=== PATIENT | male | born 1990 | race Caucasian/White ===

== ENCOUNTER 2016-02-24 19:36 | Observation (INO) | payer MEDICAID ==
[2016-02-24] MEDS ORDERED: NS 1,000 ML IV ONE ×2 (19:45→21:52)
[2016-02-24] MEDS ORDERED: ONDANSETRON 4 MG/2 ML VIAL IVP ONE (19:45)
[2016-02-24] MEDS ORDERED: LORazepam 2 MG/ML INJ IVP ONE ×2 (19:45→20:47)
--- NOTE | 2016-02-24 19:45 | EDPHY ---
H & P Time Seen by Provider: 02/24/16 19:37 HPI/ROS: CHIEF COMPLAINT: Epigastric abdominal pain HISTORY OF PRESENT ILLNESS: 25-year-old male history of alcoholism, has been binge drinking, arrives via ambulance from [facility] complaining of acute epigastric abdominal pain, states this feels similar to his usual pancreatitis. He has a history of chronic pancreatitis my pancreas is burned out. States that his lipase is chronically normal. He is complaining of nausea, vomiting, retching, epigastric abdominal pain REVIEW OF SYSTEMS: A ten point review of systems was performed and is negative with the exception of the items mentioned in the HPI PAST MEDICAL & SURGICAL HISTORY: Chronic pancreatitis. Alcoholism SOCIAL HISTORY:recent binge drinking PHYSICAL EXAM (Prior to examination, patient consented to physical exam, hands were washed and my usual and customary physical exam procedures followed) 1) GENERAL: Well-developed, well-nourished, alert and oriented. Appears Uncomfortable. 2) HEAD: Normocephalic, atraumatic 3) HEENT: Pupils equal, round, reactive to light bilaterally. Sclera anicteric. Nasopharynx, oropharynx, clear, no lesions. Moist mucous membranes 4) NECK: Full range of motion, no meningeal signs. 5) LUNGS: Clear auscultation bilaterally, no wheezes, no rhonchi, no retractions. 6) HEART: Regular rate and rhythm, no murmur, no heave, no gallop. 7) ABDOMEN: guarding epigastrium, tender to palpation epigastrium n negative Willett's, negative Rovsing's, negative peritoneal sign, 8) MUSCULOSKELETAL: Moving all extremities, no focal areas of tenderness, no obvious trauma. No peripheral edema or discoloration. 9) BACK: No CVA tenderness, no midline vertebral tenderness, no fluctuance, no step-off, no obvious trauma, no visual or palpable abnormality. 10) SKIN: No rash, no petechiae. 11) Psychiatric: Patient is oriented X 3, there is no agitation. DIFFERENTIAL DIAGNOSIS: in no particular include but limited to acute cholecystitis, acute pancreatitis, peptic ulcer disease - Personal History Tetanus Vaccine Date: 2015 - Medical/Surgical History Hx Asthma: No Hx Chronic Respiratory Disease: No Hx Diabetes: No Hx Cardiac Disease: No Hx Renal Disease: No Hx Cirrhosis: No Hx Alcoholism: No Hx HIV/AIDS: No Hx Splenectomy or Spleen Trauma: No Other PMH: chronic pancreatitis. uncontrolled htn. anxiety. Alcohol abuse - Social History Smoking Status: Current every day smoker Constitutional: Initial Vital Signs Temperature (C) 37.2 C 02/24/16 19:41 Heart Rate 103 H 02/24/16 19:41 Respiratory Rate 16 02/24/16 19:41 Blood Pressure 145/95 H 02/24/16 19:41 O2 Sat (%) 97 02/24/16 19:41 O2 Delivery Mode Room Air O2 (L/minute) 2 Allergies/Adverse Reactions: tramadol Allergy (Verified 01/16/16 15:23) Home Medications: Medication Instructions Recorded Antabuse 250 MG (*) 12/09/15 LORazepam [Ativan] 1 mg PO Q8 PRN #3 tab 12/09/15 Ondansetron Odt [Zofran Odt 4 mg 4 mg PO Q4 PRN #10 tab 12/09/15 (RX)] Famotidine [Pepcid 20 MG (*)] 20 mg PO BID #28 tab 01/06/16 Medical Decision Making - Diagnostics Imaging: CT Scan of the Abdomen and Pelvis (With Contrast) Clinical Indications: Abdominal pain. Technique: Dilute contrast was given orally prior to scanning. 90 mL of Isovue-300 were given intravenously by machine power injection. Multidetector helical CT imaging was performed from the diaphragm to the symphysis pubis. Dose reduction techniques were utilized. Findings Abdomen: The lung bases are clear, and there is no significant pleural fluid. The liver is diffusely fatty infiltrated. The biliary ducts and gallbladder are unremarkable. The pancreas and spleen are normal. The adrenal glands and kidneys are normal. No adenopathy and no masses are found. No aneurysm of the abdominal aorta. Pelvis: The urinary bladder is unremarkable. No free fluid in the pelvis. No masses are identified. Bowel loops are normal. Impression: Fatty infiltration of the liver. Images reviewed by myself ED Course/Re-evaluation: 8:40 p.m.: Re-evaluation. Discussed his laboratory and diagnostic results. Doubt acute surgical abdominal pathology. Doubt acute pancreatitis. Doubt delirium tremens. He is answering questions appropriately with no altered mentation. No seizure activity. He has been tolerating oral intake. He would like to be discharged home. He is not on an [facility] hold. I have offered to [facility]. He declines this. States that his girlfriend will be taking him home and putting him to bed. He requests further dose of analgesia and benzodiazepine prior to discharge as he continues to have mild, however significantly improved, epigastric discomfort. We had a lengthy discussion recommended alcohol cessation, discussed the dangers of chronic alcohol use . 10:05 p.m. re-evaluation. Notes that his pain is decreased significantly. Re- evaluated his abdomen which remains diffusely tender to palpation but he does have focal pain in the right lower quadrant. He remains tachycardic in the 130s after multiple dosages of Dilaudid and Ativan. I recommended CT imaging. Indications risks benefits discussed with the patient and he verbalizes consent. 11:28 p.m.: Re-evaluation. He is answering questions appropriately with no evidence of delirium tremens. 12:01 A.M.: This patient was re-evaluated with serial exams. Also seen exam by Dr. Farnsico Ortiz. We discussed possibility of acute alcohol withdrawal as he remains consistently tachycardic. However, he has been given multiple dosages of benzodiazepine as well as IV hydration and analgesic for his abdominal pain he remains tachycardic in the 130s. We do not think that discharging this patient with his current vital signs is appropriate and we recommended admission. Spoke with hospitalist Dr. Arroyo who will admit patient. - Data Points Laboratory Results: Laboratory Results 02/24/16 19:40 02/24/16 19:40 02/24/16 19:40 WBC 9.17 10^3/uL (3.80-9.50) RBC 6.02 10^6/uL (4.40-6.38) Hgb 18.1 H g/dL (13.7-17.5) Hct 51.4 H % (40.0-51.0) MCV 85.4 fL (81.5-99.8) MCH 30.1 pg (27.9-34.1) MCHC 35.2 g/dL (32.4-36.7) RDW 13.0 % (11.5-15.2) Plt Count 334 10^3/uL (150-400) MPV 9.1 fL (8.7-11.7) Neut % (Auto) 69.1 % (39.3-74.2) Lymph % (Auto) 27.4 % (15.0-45.0) [place] % (Auto) 2.2 L % (4.5-13.0) Eos % (Auto) 0.3 L % (0.6-7.6) Baso % (Auto) 0.7 % (0.3-1.7) Nucleat RBC Rel Count 0.0 % (0.0-0.2) Absolute Neuts (auto) 6.34 10^3/uL (1.70-6.50) Absolute Lymphs (auto) 2.51 10^3/uL (1.00-3.00) Absolute Monos (auto) 0.20 L 10^3/uL (0.30-0.80) Absolute Eos (auto) 0.03 10^3/uL (0.03-0.40) Absolute Basos (auto) 0.06 10^3/uL (0.02-0.10) Absolute Nucleated RBC 0.00 10^3/uL (0-0.01) Immature Gran % 0.3 % (0.0-1.1) Immature Gran # 0.03 10^3/uL (0.00-0.10) Sodium 149 H mEq/L (134-144) Potassium 4.3 mEq/L (3.5-5.2) Chloride 105 mEq/L (97-110) Carbon Dioxide 26 mEq/l (22-31) Anion Gap 18 mEq/L (8-16) BUN 14 mg/dL (7-23) Creatinine 1.1 mg/dL (0.7-1.3) Estimated GFR > 60 Glucose 89 mg/dL (70-100) Calcium 9.3 mg/dL (8.5-10.4) Total Bilirubin 0.6 mg/dL (0.1-1.4) Conjugated Bilirubin 0.5 mg/dL (0.0-0.5) Unconjugated Bilirubin 0.1 mg/dL (0.0-1.1) AST 37 IU/L (17-59) ALT 40 IU/L (21-72) Alkaline Phosphatase 117 IU/L (38-126) Total Protein 7.9 g/dL (6.3-8.2) Albumin 5.1 H g/dL (3.5-5.0) Lipase 28.0 IU/L (23-300) Ethyl Alcohol 293 H mg/dL (0-10) Medications Given: Discontinued Medications Folic Acid (Folic Acid) 1 mg PO EDNOW ONE Stop: 02/24/16 20:49 Last Admin: 02/24/16 21:01 Dose: 1 mg Hydromorphone HCl (Dilaudid) 1 mg IVP EDNOW ONE Stop: 02/24/16 19:47 Last Admin: 02/24/16 20:00 Dose: 1 mg Hydromorphone HCl (Dilaudid) 0.5 mg IVP EDNOW ONE Stop: 02/24/16 20:48 Last Admin: 02/24/16 21:03 Dose: 0.5 mg Sodium Chloride (Ns) 1,000 mls @ 0 mls/hr IV ONCE ONE PRN Reason: Wide Open Stop: 02/24/16 19:46 Last Admin: 02/24/16 19:55 Dose: 1,000 mls Sodium Chloride (Ns) 1,000 mls @ 0 mls/hr IV ONCE ONE PRN Reason: Wide Open Stop: 02/24/16 21:53 Last Admin: 02/24/16 22:06 Dose: 1,000 mls Lorazepam (Ativan Injection) 1 mg IVP EDNOW ONE Stop: 02/24/16 19:46 Last Admin: 02/24/16 19:58 Dose: 1 mg Lorazepam (Ativan Injection) 1 mg IVP EDNOW ONE Stop: 02/24/16 20:48 Last Admin: 02/24/16 21:03 Dose: 1 mg Multivitamins (Tab-A-Jose) 1 each PO EDNOW ONE Stop: 02/24/16 20:49 Last Admin: 02/24/16 21:01 Dose: 1 each Ondansetron HCl (Zofran) 4 mg IVP EDNOW ONE Stop: 02/24/16 19:46 Last Admin: 02/24/16 19:56 Dose: 4 mg Thiamine HCl (Vitamin B-1) 100 mg PO EDNOW ONE Stop: 02/24/16 20:49 Last Admin: 02/24/16 21:01 Dose: 100 mg Departure - Departure Disposition: [facility] Clinical Impression: Alcohol abuse, Tachycardia Abdominal pain Qualifiers: Abdominal location: epigastric Qualifier Code: (R10.13) Epigastric pain Alcoholic intoxication Qualifiers: Complication of substance-induced condition: uncomplicated Qualifier Code: ( F10.120) Alcohol abuse with intoxication, uncomplicated Alcohol withdrawal syndrome Qualifiers: Complication of substance-induced condition: with unspecified complication Qualifier Code: (F10.239) Alcohol dependence with withdrawal, unspecified Condition: Fair Additional Instructions: Seek immediate medical attention if you develop new or worsening symptoms, if you develop fevers, chills, inability to tolerate oral intake or any other symptoms that concerns you.Recommend you stay sober from alcohol .
[2016-02-24] MEDS ORDERED: HYDROmorphONE/DILAUDID 1 MG/ML SYR IVP ONE ×2 (19:46→20:47)
[2016-02-24 19:57] LABS: % IMMATURE GRANULYOCYTES 0.3 % (0.0-1.1); ABSOLUTE IMMATURE GRANULOCYTES 0.03 10^3/uL (0.00-0.10); ADD DIFF? NO; ADD MORPH? NO; ADD SCAN? NO; ATYPICAL LYMPHOCYTE FLAG 0 (0-99); FRAGMENT RBC FLAG 0 (0-99); HEMATOCRIT 51.4 % (40.0-51.0); HEMOGLOBIN 18.1 g/dL (13.7-17.5); LEFT SHIFT FLG 0 (0-99); LIPEMIA HEMOLYSIS FLAG 90 (0-99); MEAN CELL HEMOGLOBIN 30.1 pg (27.9-34.1); MEAN CELL HEMOGLOBIN CONCENTR. 35.2 g/dL (32.4-36.7); MEAN CELL VOLUME 85.4 fL (81.5-99.8); MEAN PLATELET VOLUME 9.1 fL (8.7-11.7); PLATELET CLUMPS FLAG 10 (0-99); PLATELET COUNT 334 10^3/uL (150-400); RED BLOOD CELL COUNT 6.02 10^6/uL (4.40-6.38)
[2016-02-24 20:16] LABS: ALANINE AMINOTRANSFERASE 40 IU/L (21-72); ALBUMIN 5.1 g/dL (3.5-5.0); ALKALINE PHOSPHATASE 117 IU/L (38-126); ANION GAP 18 mEq/L (8-16); ASPARTATE AMINOTRANSFERASE 37 IU/L (17-59); BILIRUBIN,TOTAL 0.6 mg/dL (0.1-1.4); BILIRUBIN-CONJUGATED 0.5 mg/dL (0.0-0.5); BILIRUBIN-UNCONJUGATED 0.1 mg/dL (0.0-1.1); CALCIUM 9.3 mg/dL (8.5-10.4); CARBON DIOXIDE 26 mEq/l (22-31); CHLORIDE 105 mEq/L (97-110); CREATININE 1.1 mg/dL (0.7-1.3); ETHANOL SERUM 293 mg/dL (0-10); GLOMERULAR FILTRATION RATE > 60; GLUCOSE 89 mg/dL (70-100); POTASSIUM 4.3 mEq/L (3.5-5.2); SODIUM 149 mEq/L (134-144); TOTAL PROTEIN 7.9 g/dL (6.3-8.2)
[2016-02-24] MEDS ORDERED: MULTIVITAMINS 1 EACH TAB PO ONE (20:48)
[2016-02-24] MEDS ORDERED: THIAMINE HCL 100 MG TAB PO ONE (20:48)
[2016-02-24] MEDS ORDERED: FOLIC ACID 1 MG TAB PO ONE (20:48)
[2016-02-24] MEDS ORDERED: IOPAMIDOL (ISOVUE-300) 50 ML VIAL IV ONE (22:23)
--- NOTE | 2016-02-24 22:49 | CT ---
CT Scan of the Abdomen and Pelvis (With Contrast) Clinical Indications: Abdominal pain. Technique: Dilute contrast was given orally prior to scanning. 90 mL of Isovue-300 were given intra venously by machine power injection. Multidetector helical CT imaging was performed from the diaphra gm to the symphysis pubis. Dose reduction techniques were utilized. Findings Abdomen: The lung bases are clear, and there is no significant pleural fluid. The liver is diffusel y fatty infiltrated. The biliary ducts and gallbladder are unremarkable. The pancreas and spleen ar e normal. The adrenal glands and kidneys are normal. No adenopathy and no masses are found. No ane urysm of the abdominal aorta. Pelvis: The urinary bladder is unremarkable. No free fluid in the pelvis. No masses are identified . Bowel loops are normal. Impression: Fatty infiltration of the liver. Critical results relayed by Dr. Hargrove to Juan Trimble PA-C, on February 24, 2016 at 2246 hours.
--- NOTE | 2016-02-24 23:40 | CPEKG ---
Heart Rate: 124 RR Interval: 484 P-R Interval: 164 QRSD Interval: 90 QT Interval: 308 QTC Interval: 443 P Chama: 68 QRS Chama: 49 T Wave Chama: 21 EKG Severity - OTHERWISE NORMAL ECG - EKG Impression: SINUS TACHYCARDIA Electronically Signed By: Fransico Ortiz 25-Feb-2016 06:53:10
[2016-02-25] MEDS ORDERED: LORazepam 2 MG/ML INJ ONE (00:04)
[2016-02-25] MEDS ORDERED: NS 1,000 ML IV ONE (00:08)
[2016-02-25] MEDS ORDERED: LORazepam 2 MG/ML INJ IVP ONE (00:08)
[2016-02-25] MEDS ORDERED: ONDANSETRON DISINTEGRATING 4 MG TAB PO PRN (00:43)
[2016-02-25] MEDS ORDERED: ACETAMINOPHEN 325 MG TAB PO PRN (00:43)
[2016-02-25] MEDS ORDERED: ONDANSETRON 4 MG/2 ML VIAL IVP PRN (00:43)
[2016-02-25] MEDS ORDERED: LORazepam 2 MG/ML INJ IVP PRN (00:49)
[2016-02-25] MEDS ORDERED: HYDROmorphONE/DILAUDID 1 MG/ML SYR IVP PRN (01:20)
[2016-02-25] MEDS: NS 1,000 ML IV SCH ×2 (01:27→06:18)
[2016-02-25] MEDS: HYDROCODONE/APAP 5/325 TAB PO PRN ×3 (01:27→12:21)
[2016-02-25 02:54] LABS: PHENCYCLIDINE URINE BCH < 6 ng/ml (NEGATIVE); TETRAHYDROCANNABINOL URINE < 5 ng/mL (NEGATIVE)
[2016-02-25 02:55] LABS: PHENCYCLIDINE URINE BCH NEGATIVE (NEGATIVE); TETRAHYDROCANNABINOL URINE NEGATIVE (NEGATIVE)
--- NOTE | 2016-02-25 05:23 | PDGENHP ---
History and Physical - Chief Complaint abdominal pain - History of Present Illness Patient is a 25-year-old male with a history of chronic binge alcohol use, self- reported history of chronic pancreatitis presents with complaint of abdominal pain. Patient states symptoms started on day of presentation after he drank about 1 pt of vodka. Pain was associated with mild nausea but no vomiting, no diarrhea. He describes the pain as it's my chronic pancreatitis pain," throbbing, constant, epigastric radiating to back pain. He denies any associated fevers, chills, cough, congestion or chest pain. He also denies any urinary symptoms. On arrival to the ED patient was afebrile and hemodynamically stable although tachycardic. EKG revealed sinus tachycardia. CT abdomen was obtained and revealed fatty of liver with no other acute pathology. Labs including LFTs and lipase were within normal limits, except for elevated alcohol level. Patient was given IV fluids and pain control with improvement in heart rate and he was admitted to the hospital service for further symptoms control. History Information - Allergies/Home Medication List Allergies/Adverse Reactions: tramadol Allergy (Verified 01/16/16 15:23) Home Medications: Antabuse 250 MG (*) 12/09/15 [Last Taken Unknown] I have personally reviewed and updated: family history, medical history, social history, surgical history - Past Medical History Additional medical history: ? Chronic pancreatitis (all lipase levels in [facility] are normal). Binge-type alcohol use - Surgical History Reports: no pertinent surgical hx - Family History Additional family history: F: prostate ca - Social History Smoking Status: Current every day smoker (<1/2 PPD) Alcohol Use: Heavy (1 pint vodka binges 1-2 times/week) Drug Use: None Additional social history: Patient works in [employer]. Review of Systems ROS: 10pt was reviewed & negative except for what was stated in HPI & below Physical Exam Temp Pulse Resp BP Pulse Ox 36.7 C 94 16 121/72 H 92 02/25/16 04:00 02/25/16 04:00 02/25/16 04:00 02/25/16 04:00 02/25/16 04:00 O2 (L/minute) 2 Constitutional: no apparent distress, appears nourished, not in pain Eyes: PERRL, anicteric sclera, EOMI Ears, Nose, Mouth, Throat: moist mucous membranes, hearing normal, ears appear normal, no oral mucosal ulcers Cardiovascular: regular rate and rhythym, no murmur, rub, or gallop, pulses symmetric bilaterally, No JVD, No edema Peripheral Pulses: 2+: dorsalis-pedis (R), dorsalis-pedis (L) Respiratory: no respiratory distress, no rales or rhonchi, clear to auscultation Gastrointestinal: normoactive bowel sounds, tenderness (In epigastrium), No hepatosplenomegally, No guarding, No rebound, No distension Genitourinary: no bladder fullness, no bladder tenderness Skin: warm, normal color, no rashes or abrasions, no fluctuance, no induration, No mottled Lab Data & Imaging Review 02/24/16 19:40 02/24/16 19:40 WBC 9.17 10^3/uL (3.80-9.50) 02/24/16 19:40 RBC 6.02 10^6/uL (4.40-6.38) 02/24/16 19:40 Hgb 18.1 g/dL (13.7-17.5) H 02/24/16 19:40 Hct 51.4 % (40.0-51.0) H 02/24/16 19:40 MCV 85.4 fL (81.5-99.8) 02/24/16 19:40 MCH 30.1 pg (27.9-34.1) 02/24/16 19:40 MCHC 35.2 g/dL (32.4-36.7) 02/24/16 19:40 RDW 13.0 % (11.5-15.2) 02/24/16 19:40 Plt Count 334 10^3/uL (150-400) 02/24/16 19:40 MPV 9.1 fL (8.7-11.7) 02/24/16 19:40 Neut % (Auto) 69.1 % (39.3-74.2) 02/24/16 19:40 Lymph % (Auto) 27.4 % (15.0-45.0) 02/24/16 19:40 [place] % (Auto) 2.2 % (4.5-13.0) L 02/24/16 19:40 Eos % (Auto) 0.3 % (0.6-7.6) L 02/24/16 19:40 Baso % (Auto) 0.7 % (0.3-1.7) 02/24/16 19:40 Nucleat RBC Rel Count 0.0 % (0.0-0.2) 02/24/16 19:40 Absolute Neuts (auto) 6.34 10^3/uL (1.70-6.50) 02/24/16 19:40 Absolute Lymphs (auto) 2.51 10^3/uL (1.00-3.00) 02/24/16 19:40 Absolute Monos (auto) 0.20 10^3/uL (0.30-0.80) L 02/24/16 19:40 Absolute Eos (auto) 0.03 10^3/uL (0.03-0.40) 02/24/16 19:40 Absolute Basos (auto) 0.06 10^3/uL (0.02-0.10) 02/24/16 19:40 Absolute Nucleated RBC 0.00 10^3/uL (0-0.01) 02/24/16 19:40 Immature Gran % 0.3 % (0.0-1.1) 02/24/16 19:40 Immature Gran # 0.03 10^3/uL (0.00-0.10) 02/24/16 19:40 Sodium 149 mEq/L (134-144) H 02/24/16 19:40 Potassium 4.3 mEq/L (3.5-5.2) 02/24/16 19:40 Chloride 105 mEq/L (97-110) 02/24/16 19:40 Carbon Dioxide 26 mEq/l (22-31) 02/24/16 19:40 Anion Gap 18 mEq/L (8-16) 02/24/16 19:40 BUN 14 mg/dL (7-23) 02/24/16 19:40 Creatinine 1.1 mg/dL (0.7-1.3) 02/24/16 19:40 Estimated GFR > 60 02/24/16 19:40 Glucose 89 mg/dL (70-100) 02/24/16 19:40 Calcium 9.3 mg/dL (8.5-10.4) 02/24/16 19:40 Total Bilirubin 0.6 mg/dL (0.1-1.4) 02/24/16 19:40 Conjugated Bilirubin 0.5 mg/dL (0.0-0.5) 02/24/16 19:40 Unconjugated Bilirubin 0.1 mg/dL (0.0-1.1) 02/24/16 19:40 AST 37 IU/L (17-59) 02/24/16 19:40 ALT 40 IU/L (21-72) 02/24/16 19:40 Alkaline Phosphatase 117 IU/L (38-126) 02/24/16 19:40 Total Protein 7.9 g/dL (6.3-8.2) 02/24/16 19:40 Albumin 5.1 g/dL (3.5-5.0) H 02/24/16 19:40 Lipase 28.0 IU/L (23-300) 02/24/16 19:40 Urine Opiates Screen NEGATIVE ng/mL (NEGATIVE) 02/25/16 01:20 Urine Barbiturates NEGATIVE ng/mL (NEGATIVE) 02/25/16 01:20 Ur Phencyclidine Scrn NEGATIVE ng/mL (NEGATIVE) 02/25/16 01:20 Ur Amphetamines Screen NEGATIVE ng/mL (NEGATIVE) 02/25/16 01:20 U Benzodiazepines Scrn NEGATIVE ng/mL (NEGATIVE) 02/25/16 01:20 Urine Cocaine Screen NEGATIVE ng/mL (NEGATIVE) 02/25/16 01:20 U Marijuana (THC) Screen NEGATIVE ng/mL (NEGATIVE) 02/25/16 01:20 Ethyl Alcohol 293 mg/dL (0-10) H 02/24/16 19:40 Visualized and Interpreted Chest x-ray results: Yes Visualized and Interpreted imaging results: Yes Interpretation: CT abd/pelvis: fatty liver; no other acute pathology Assessment & Plan Assessment: Patient is a 25-year-old male with history of chronic binge alcohol use, reported history of chronic pancreatitis presents to the ED complaining of abdominal pain consistent with his chronic pancreatitis. ED evaluation was significant for elevated alcohol level and tachycardia, with normal labs. Plan: # abdominal pain Differential includes chronic pancreatitis versus acute alcohol-induced chronic gastritis. CT abdomen unremarkable for any acute pathology. Will give IV fluid hydration, pain control and reassess. # tachycardia Sinus tachycardia likely related to pain. Improved with IV fluid hydration and pain control. Will check UA to rule out infection, however low suspicion given normal CBC. # chronic continuous alcohol use Patient with multiple ED visits for alcohol intoxication, has been referred to the [facility] regularly, but continues to drink. Intoxicated on presentation. Will monitor for signs of withdrawal and placed on CIWA protocol. # dispo: admit to observation status # full code
[2016-02-25 05:50] LABS: % IMMATURE GRANULYOCYTES 0.3 % (0.0-1.1); ABSOLUTE IMMATURE GRANULOCYTES 0.02 10^3/uL (0.00-0.10); ADD DIFF? NO; ADD MORPH? NO; ADD SCAN? NO; ATYPICAL LYMPHOCYTE FLAG 0 (0-99); FRAGMENT RBC FLAG 0 (0-99); HEMATOCRIT 40.4 % (40.0-51.0); HEMOGLOBIN 13.9 g/dL (13.7-17.5); LEFT SHIFT FLG 0 (0-99); LIPEMIA HEMOLYSIS FLAG 90 (0-99); MEAN CELL HEMOGLOBIN 30.5 pg (27.9-34.1); MEAN CELL HEMOGLOBIN CONCENTR. 34.4 g/dL (32.4-36.7); MEAN CELL VOLUME 88.6 fL (81.5-99.8); MEAN PLATELET VOLUME 9.3 fL (8.7-11.7); PLATELET CLUMPS FLAG 10 (0-99); PLATELET COUNT 239 10^3/uL (150-400); RED BLOOD CELL COUNT 4.56 10^6/uL (4.40-6.38); RED CELL DISTRIBUTION WIDTH 13.2 % (11.5-15.2)
[2016-02-25 07:15] LABS: ALANINE AMINOTRANSFERASE 32 IU/L (21-72); ALBUMIN 3.5 g/dL (3.5-5.0); ALKALINE PHOSPHATASE 78 IU/L (38-126); ANION GAP 14 mEq/L (8-16); ASPARTATE AMINOTRANSFERASE 29 IU/L (17-59); BILIRUBIN,TOTAL 0.5 mg/dL (0.1-1.4); CALCIUM 7.7 mg/dL (8.5-10.4); CARBON DIOXIDE 22 mEq/l (22-31); CHLORIDE 107 mEq/L (97-110); GLOMERULAR FILTRATION RATE > 60; GLUCOSE 71 mg/dL (70-100); MAGNESIUM 1.8 mg/dL (1.6-2.3); SODIUM 143 mEq/L (134-144); TOTAL PROTEIN 5.9 g/dL (6.3-8.2)
[2016-02-25] MEDS ORDERED: FAMOTIDINE 20 MG TAB PO SCH (09:00)
[2016-02-25 12:19] VITALS: RESP 16; TEMP 98.1
[2016-02-25 14:48] VITALS: BP 153/95; PULSE 104; O2SAT 95
--- NOTE | 2016-02-25 15:06 | GDS ---
[f rep st] DISCHARGE SUMMARY DISCHARGE DIAGNOSES: 1. Pancreatitis. 2. Tachycardia. 3. Abdominal pain. 4. Alcohol abuse. STUDIES AND PROCEDURES DONE: CT of the abdomen. PHYSICAL EXAMINATION: GENERAL: The patient is alert. VITAL SIGNS: Afebrile at 36.7, pulse is 86, respiratory rate 12, blood pressure is 126/66. He is saturating 97% on room air. I saw and evaluate d the patient on the day of discharge. HOSPITAL COURSE: The patient is a 25-year-old male who has a long-standing history of alcohol binge, and presented to the emergency room with complaints of abdominal pain, likely representing acute mil d pancreatitis. He was treated with supportive management, including IV fluids and antiemetics. His abdominal pain has resolved. He is tolerating a liquid diet. He is eager to be discharged home. H is tachycardia has improved and is stable prior to disposition. I have had a discussion with the patient regarding his alcohol abuse. He is in counseling therapy an d a program, which he plans to continue once discharged from the hospital. There are no pending stud ies. DISCHARGE MEDICATIONS: Please refer to EMR form. I have not provided the patient any prescriptions. We have offered him resources regarding his alcohol problem, however, he is denying the need for re sources at this time. /[id number]/MODL
== END 2016-02-25 15:04 | disposition home or self-care (01) ==
LOC: EDUNIT# → F3E 02-25 01:00
PROVIDERS: ADMIT Internal Medicine; ATTEND Hospitalist
PROC: HZ2ZZZZ Detoxification Services for Substance Abuse Treatment (ICD-10-PCS; principal; 2016-02-25)
DX: K85.20 Alcohol induced acute pancreatitis without necrosis or infection (principal); F10.239 Alcohol dependence with withdrawal, unspecified; F10.220 Alcohol dependence with intoxication, uncomplicated; Y90.7 Blood alcohol level of 200-239 mg/100 ml; F17.210 Nicotine dependence, cigarettes, uncomplicated
CPT/HCPCS: 74177; 93005; 96361; 96374; 96375; 96376; 99285; G0378; 80307; G0480; J1170; J2405; Q9967

== ENCOUNTER 2016-02-26 17:20 | Emergency (ER) | payer MEDICAID ==
--- NOTE | 2016-02-26 17:23 | EDPHY ---
H & P Time Seen by Provider: 02/26/16 17:22 Medical Decision Making ED Course/Re-evaluation: CHIEF COMPLAINT: HISTORY OF PRESENT ILLNESS: must have 4 elements: Location, Quality, Severity , Duration, Timing, Context, Modifying Factors, Associated Signs and Symptoms REVIEW OF SYSTEMS: A 10 point review of systems was performed and is negative with the exception of the elements mentioned in the history of present illness. PHYSICAL EXAM: HR, BP, O2 Sat, RR. Temp noted General Appearance: Alert, well hydrated, appropriate, and non-toxic appearing. Head: Atraumatic without scalp tenderness or obvious injury Eyes: Pupils equal, round, reactive to light and accommodation, EOMI, no trauma , no injection. Ears: Clear bilaterally, no perforation, normal landmarks Nose: Atraumatic, no rhinorrhea, clear. Throat: There is no erythema or exudates, no lesions, normal tonsils, mucus membranes moist. Neck: Supple, 2+ carotid upstroke, nontender, no lymphadenopathy. Respiratory: No retractions, no distress, no wheezes, and no accessory muscle use. Lungs are clear to auscultation bilaterally. Cardiovascular: Regular rate and rhythm, no murmurs, rubs, or gallops. Bilateral carotid, radial, dorsalis pedis, and posterior tibial pulses intact. Good capillary refill all extremities. Gastrointestinal: Abdomen is soft, nontender, non-distended, no masses, no rebound, no guarding, no peritoneal signs. Musculoskeletal: Normal active ROM of all extremities, atraumatic. Neurological: Alert, appropriate, and interactive. The patient has normal DTRs and non-focal cranial nerves, motor, sensory, and cerebellar exam. Skin: No rashes, good turgor, no nodules on palpation. Past medical history: Past surgical history: Family history: Social history: DIAGNOSTICS/PROCEDURES/CRITICAL CARE TIME: DIFFERENTIAL DIAGNOSIS: MEDICAL DECISION MAKING:
--- NOTE | 2016-02-26 17:25 | EDPHY ---
H & P Constitutional: Initial Vital Signs Temperature (C) 36.7 C 02/26/16 17:25 Heart Rate 109 H 02/26/16 17:25 Respiratory Rate 17 02/26/16 17:25 Blood Pressure 140/92 H 02/26/16 17:25 O2 Sat (%) 94 02/26/16 17:25 O2 Delivery Mode Room Air O2 (L/minute) 2 Allergies/Adverse Reactions: tramadol Allergy (Verified 02/26/16 17:24) Home Medications: Medication Instructions Recorded NK [No Known Home Meds] 02/26/16 Medical Decision Making ED Course/Re-evaluation: CHIEF COMPLAINT: Alcohol intoxication, abdominal pain HISTORY OF PRESENT ILLNESS: The patient is a 25 y/o male, with a history of pancreatitis and alcohol abuse, arriving via EMS with intoxication and epigastric abdominal pain. He was admitted 2 days ago for pancreatitis and alcohol withdrawal and discharged yesterday. He reports he was feeling improved upon discharge. He also notes during this last admission he was diagnosed with cirrhosis. He denies other complaints. He is on an [facility] hold. REVIEW OF SYSTEMS: A 10 point review of systems was performed and is negative with the exception of the elements mentioned in the history of present illness. PHYSICAL EXAM: General Appearance: Alert, well hydrated, appropriate, and non-toxic appearing, smells of alcohol. Head: Atraumatic without scalp tenderness or obvious injury Eyes: Pupils equal, round, reactive to light and accommodation, EOMI, no trauma , no injection. Ears: Clear bilaterally, no perforation, normal landmarks Nose: Atraumatic, no rhinorrhea, clear. Throat: There is no erythema or exudates, no lesions, normal tonsils, mucus membranes moist. Neck: Supple, 2+ carotid upstroke, non-tender, no lymphadenopathy. Respiratory: No retractions, no distress, no wheezes, and no accessory muscle use. Lungs are clear to auscultation bilaterally. Cardiovascular: Regular rate and rhythm, no murmurs, rubs, or gallops. Bilateral carotid, radial, dorsalis pedis, and posterior tibial pulses intact. Good capillary refill all extremities. Gastrointestinal: Abdomen is soft, mild epigastric tenderness, non-distended, no masses, no rebound, no guarding, no peritoneal signs. Musculoskeletal: Normal active ROM of all extremities, atraumatic. Neurological: Alert, appropriate, and interactive. The patient has normal DTRs and non-focal cranial nerves, motor, sensory, and cerebellar exam. Skin: No rashes, good turgor, no nodules on palpation. PAST MEDICAL HISTORY: Pancreatitis, alcohol abuse PAST SURGICAL HISTORY: Noncontributory SOCIAL HISTORY: Alcohol abuse Reviewed prior medical records including admission 02/24/16 for tachycardia and alcohol withdrawal. Notably, his lipase was not elevated during that admission. DIFFERENTIAL DIAGNOSIS: The differential diagnosis for the patient's abdominal pain included but was not limited to pancreatitis, appendicitis, cholecystitis, hernias, testicular torsion, gastritis, and urinary tract infection. MEDICAL DECISION MAKING: This is a 25 y/o male with a history of alcohol abuse returning to the ED for the second time in 2 days with alcohol intoxication and abdominal pain. He reports he was diagnosed with pancreatitis and cirrhosis, however his lipase was never elevated during that stay. He was discharged home yesterday in good condition. He has some mild epigastric tenderness, but his exam is otherwise unremarkable. He admits to drinking today. IV established. Labs drawn including CBC, CHEM, lipase, LFTs. Labs are unremarkable, lipase is not elevated. 1808: Patient walked to the bathroom unassisted. He is medically clear for the [facility] and will be discharged with standard intoxication instructions. - Data Points Laboratory Results: Laboratory Results 02/26/16 17:30 02/26/16 17:30 02/26/16 17:30 WBC 4.66 10^3/uL (3.80-9.50) RBC 5.15 10^6/uL (4.40-6.38) Hgb 15.6 g/dL (13.7-17.5) Hct 44.6 % (40.0-51.0) MCV 86.6 fL (81.5-99.8) MCH 30.3 pg (27.9-34.1) MCHC 35.0 g/dL (32.4-36.7) RDW 13.1 % (11.5-15.2) Plt Count 238 10^3/uL (150-400) MPV 9.0 fL (8.7-11.7) Neut % (Auto) 35.2 L % (39.3-74.2) Lymph % (Auto) 49.6 H % (15.0-45.0) Turner % (Auto) 4.7 % (4.5-13.0) Eos % (Auto) 9.7 H % (0.6-7.6) Baso % (Auto) 0.6 % (0.3-1.7) Nucleat RBC Rel Count 0.0 % (0.0-0.2) Absolute Neuts (auto) 1.64 L 10^3/uL (1.70-6.50) Absolute Lymphs (auto) 2.31 10^3/uL (1.00-3.00) Absolute Monos (auto) 0.22 L 10^3/uL (0.30-0.80) Absolute Eos (auto) 0.45 H 10^3/uL (0.03-0.40) Absolute Basos (auto) 0.03 10^3/uL (0.02-0.10) Absolute Nucleated RBC 0.00 10^3/uL (0-0.01) Immature Gran % 0.2 % (0.0-1.1) Immature Gran # 0.01 10^3/uL (0.00-0.10) Sodium 150 H mEq/L (134-144) Potassium 3.5 mEq/L (3.5-5.2) Chloride 106 mEq/L (97-110) Carbon Dioxide 26 mEq/l (22-31) Anion Gap 18 mEq/L (8-16) BUN 7 mg/dL (7-23) Creatinine 0.9 mg/dL (0.7-1.3) Estimated GFR > 60 Glucose 104 H mg/dL (70-100) Calcium 8.5 mg/dL (8.5-10.4) Total Bilirubin 0.5 mg/dL (0.1-1.4) Conjugated Bilirubin 0.2 mg/dL (0.0-0.5) Unconjugated Bilirubin 0.3 mg/dL (0.0-1.1) AST 33 IU/L (17-59) ALT 37 IU/L (21-72) Alkaline Phosphatase 89 IU/L (38-126) Total Protein 7.0 g/dL (6.3-8.2) Albumin 4.2 g/dL (3.5-5.0) Lipase 37.0 IU/L (23-300) Medications Given: Discontinued Medications Sodium Chloride (Ns) 1,000 mls @ 0 mls/hr IV EDNOW ONE PRN Reason: Wide Open Stop: 02/26/16 17:28 Last Admin: 02/26/16 17:35 Dose: 1,000 mls Ondansetron HCl (Zofran) 4 mg IVP EDNOW ONE Stop: 02/26/16 17:28 Last Admin: 02/26/16 17:35 Dose: 4 mg Departure - Departure Disposition: Home, Routine, Self-Care Clinical Impression: Alcohol abuse, Alcohol intoxication Condition: Good Instructions: Abuse of Alcohol (ED), Alcohol Intoxication (ED) Additional Instructions: Medically clear for detox. Referrals: Patient,NotPresent [Unknown] - As per Instructions [facility] 24 Hours [Outside] - As per Instructions Report Scribed for: Ace Merino Report Scribed by: Brenda Beth Date of Report: 02/26/16 Time of Report: 17:25
[2016-02-26 17:27] VITALS: BP 140/92; PULSE 109; RESP 17; TEMP 98.1; O2SAT 94
[2016-02-26] MEDS ORDERED: ONDANSETRON 4 MG/2 ML VIAL IVP ONE (17:27)
[2016-02-26] MEDS ORDERED: NS 1,000 ML IV ONE (17:27)
[2016-02-26] MEDS ORDERED: ONDANSETRON 4 MG/2 ML VIAL ONE (17:28)
[2016-02-26 17:41] LABS: % IMMATURE GRANULYOCYTES 0.2 % (0.0-1.1); ABSOLUTE IMMATURE GRANULOCYTES 0.01 10^3/uL (0.00-0.10); ADD DIFF? NO; ADD MORPH? NO; ADD SCAN? NO; ATYPICAL LYMPHOCYTE FLAG 10 (0-99); FRAGMENT RBC FLAG 0 (0-99); HEMATOCRIT 44.6 % (40.0-51.0); HEMOGLOBIN 15.6 g/dL (13.7-17.5); LEFT SHIFT FLG 0 (0-99); LIPEMIA HEMOLYSIS FLAG 90 (0-99); MEAN CELL HEMOGLOBIN 30.3 pg (27.9-34.1); MEAN CELL VOLUME 86.6 fL (81.5-99.8); PLATELET CLUMPS FLAG 10 (0-99); PLATELET COUNT 238 10^3/uL (150-400); RED BLOOD CELL COUNT 5.15 10^6/uL (4.40-6.38); RED CELL DISTRIBUTION WIDTH 13.1 % (11.5-15.2)
[2016-02-26 17:55] LABS: ALANINE AMINOTRANSFERASE 37 IU/L (21-72); ALBUMIN 4.2 g/dL (3.5-5.0); ALKALINE PHOSPHATASE 89 IU/L (38-126); ANION GAP 18 mEq/L (8-16); ASPARTATE AMINOTRANSFERASE 33 IU/L (17-59); BILIRUBIN,TOTAL 0.5 mg/dL (0.1-1.4); BILIRUBIN-CONJUGATED 0.2 mg/dL (0.0-0.5); BILIRUBIN-UNCONJUGATED 0.3 mg/dL (0.0-1.1); CALCIUM 8.5 mg/dL (8.5-10.4); CARBON DIOXIDE 26 mEq/l (22-31); CHLORIDE 106 mEq/L (97-110); CREATININE 0.9 mg/dL (0.7-1.3); GLOMERULAR FILTRATION RATE > 60; GLUCOSE 104 mg/dL (70-100); POTASSIUM 3.5 mEq/L (3.5-5.2); SODIUM 150 mEq/L (134-144)
== END 2016-02-26 19:01 | disposition home or self-care (01) ==
LOC: MERGE 17:20 → EDSEX 17:20
DX: F10.129 Alcohol abuse with intoxication, unspecified (principal)
CPT/HCPCS: 96374; J2405

== ENCOUNTER 2016-02-26 23:40 | Emergency (ER) | payer MEDICAID ==
[2016-02-26] MEDS ORDERED: ONDANSETRON 4 MG/2 ML VIAL IVP ONE (23:47)
[2016-02-26] MEDS ORDERED: NS 1,000 ML IV ONE (23:47)
--- NOTE | 2016-02-26 23:47 | EDPHY ---
H & P HPI/ROS: HPI CHIEF COMPLAINT: I am having pancreatitis HISTORY OF PRESENT ILLNESS: This patient very pleasant 25-year-old male significant past medical history for alcohol abuse and chronic pancreatitis who presents to the emergency room after being seen here in the emergency room earlier today for worsening pancreatitis with nausea vomiting and epigastric abdominal pain. He tells me did have a pt of liquor this evening. He states his pain is worse he was recently here in the emergency room as well as recently hospitalized. Denies any other complaints. Denies blood in his vomit. Describes pain as 7/10. Past Medical History: Pancreatitis, due to alcohol abuse Past Surgical History: No significant surgical history Social History: Denies drugs, endorses daily alcohol use, denies tobacco Family History: noncontributory ROS REVIEW OF SYSTEMS: A comprehensive 10 point review of systems is otherwise negative aside from elements mentioned in the history of present illness. Exam Constitutional triage nursing summary reviewed, vital signs reviewed, awake/ alert. Eyes normal conjunctivae and sclera, EOMI, PERRLA. HENT normal inspection, atraumatic, moist mucus membranes, no epistaxis, neck supple/ no meningismus, no raccoon eyes. Respiratory clear to auscultation bilaterally, normal breath sounds, no respiratory distress, no wheezing. Cardiovascular rate normal, regular rhythm, no murmur, no edema, distal pulses normal. Gastrointestinal tender palpation in the right lower quadrant as well as epigastric region, no rebound, no guarding, normal bowel sounds, no distension, no pulsatile mass. Genitourinary no CVA tenderness. Musculoskeletal no midline vertebral tenderness, full range of motion, no calf swelling, no tenderness of extremities, no meningismus, good pulses, neurovascularly intact. Skin pink, warm, & dry, no rash, skin atraumatic. Neurologic awake, alert and oriented x 3, AAOx3, moves all 4 extremities equally, motor intact, sensory intact, CN II-XII intact, normal cerebellar, normal vision, normal speech. Psychiatric normal mood/affect. Heme/Lymph/Immune no lymphadenopathy. Differential Diagnosis: Includes but is not limited to in a particular acute pancreatitis, acute alcohol abuse, chronic alcohol abuse, chronic pancreatitis. Medical Decision Making: Patient had an IV established will be given IV fluids , nausea medicine and pain medicine does have focal tenderness to right lower quadrant he will need a CT scan of his abdomen pelvis. Re-evaluation: CT scan of the abdomen pelvis with IV contrast The results of the study are negative for acute inflammatory process specifically no evidence of pancreatitis on CT no evidence of appendicitis The study was read by Dr. Quijano . I viewed the images myself on the PACS system. 0142: Re-evaluation at this time: Patient is resting comfortably I re- examined his abdomen is non tender soft he is not vomiting. He did receive IV fluids here. His blood work and CT been reviewed. He is agreeable for discharge. It is noted he alcohol level was high when he arrived here however clinically sober at this time with a normal gait no ataxia, not slurring his speech and, cooperative he is agreeable for discharge. Source: Patient - Personal History Tetanus Vaccine Date: 2015 - Medical/Surgical History Hx Asthma: No Hx Chronic Respiratory Disease: No Hx Diabetes: No Hx Cardiac Disease: No Hx Renal Disease: No Hx Cirrhosis: No Hx Alcoholism: No Hx HIV/AIDS: No Hx Splenectomy or Spleen Trauma: No Other PMH: chronic pancreatitis. uncontrolled htn. anxiety. Alcohol abuse - Social History Smoking Status: Current every day smoker (<1/2 PPD) Constitutional: Initial Vital Signs Temperature (C) 36.7 C 02/26/16 23:40 Heart Rate 104 H 02/26/16 23:40 Respiratory Rate 18 02/26/16 23:40 Blood Pressure 153/113 H 02/26/16 23:40 O2 Sat (%) 97 02/26/16 23:40 O2 Delivery Mode Room Air Allergies/Adverse Reactions: tramadol Allergy (Verified 02/26/16 23:54) Home Medications: Medication Instructions Recorded Acetaminophen [Tylenol 325mg (*)] 650 mg PO Q4HRS PRN #0 tab 02/25/16 Famotidine [Pepcid 20 MG (*)] 20 mg PO BID #0 tab 02/25/16 Vitamin B Complex [SUPER B-100] 1 tab PO DAILY 02/25/16 Medical Decision Making - Data Points Laboratory Results: Laboratory Results 02/26/16 23:59 02/26/16 23:59 02/26/16 23:59 WBC 6.48 10^3/uL (3.80-9.50) RBC 5.13 10^6/uL (4.40-6.38) Hgb 15.5 g/dL (13.7-17.5) Hct 44.2 % (40.0-51.0) MCV 86.2 fL (81.5-99.8) MCH 30.2 pg (27.9-34.1) MCHC 35.1 g/dL (32.4-36.7) RDW 13.2 % (11.5-15.2) Plt Count 246 10^3/uL (150-400) MPV 9.2 fL (8.7-11.7) Neut % (Auto) 55.2 % (39.3-74.2) Lymph % (Auto) 38.0 % (15.0-45.0) [place] % (Auto) 4.3 L % (4.5-13.0) Eos % (Auto) 2.0 % (0.6-7.6) Baso % (Auto) 0.3 % (0.3-1.7) Nucleat RBC Rel Count 0.0 % (0.0-0.2) Absolute Neuts (auto) 3.58 10^3/uL (1.70-6.50) Absolute Lymphs (auto) 2.46 10^3/uL (1.00-3.00) Absolute Monos (auto) 0.28 L 10^3/uL (0.30-0.80) Absolute Eos (auto) 0.13 10^3/uL (0.03-0.40) Absolute Basos (auto) 0.02 10^3/uL (0.02-0.10) Absolute Nucleated RBC 0.00 10^3/uL (0-0.01) Immature Gran % 0.2 % (0.0-1.1) Immature Gran # 0.01 10^3/uL (0.00-0.10) Sodium 150 H mEq/L (134-144) Potassium 3.6 mEq/L (3.5-5.2) Chloride 108 mEq/L (97-110) Carbon Dioxide 24 mEq/l (22-31) Anion Gap 18 mEq/L (8-16) BUN 6 L mg/dL (7-23) Creatinine 0.8 mg/dL (0.7-1.3) Estimated GFR > 60 Glucose 94 mg/dL (70-100) Calcium 8.3 L mg/dL (8.5-10.4) Total Bilirubin 0.5 mg/dL (0.1-1.4) Conjugated Bilirubin 0.2 mg/dL (0.0-0.5) Unconjugated Bilirubin 0.3 mg/dL (0.0-1.1) AST 34 IU/L (17-59) ALT 39 IU/L (21-72) Alkaline Phosphatase 96 IU/L (38-126) Total Protein 7.1 D g/dL (6.3-8.2) Albumin 4.3 g/dL (3.5-5.0) Lipase 31.0 IU/L (23-300) Ethyl Alcohol 299 H mg/dL (0-10) Medications Given: Discontinued Medications Sodium Chloride (Ns) 1,000 mls @ 0 mls/hr IV ONCE ONE PRN Reason: Wide Open Stop: 02/26/16 23:48 Last Admin: 02/27/16 00:26 Dose: 1,000 mls Morphine Sulfate (Morphine) 2 mg IVP EDNOW ONE Stop: 02/26/16 23:48 Last Admin: 02/27/16 00:27 Dose: 2 mg Ondansetron HCl (Zofran) 4 mg IVP EDNOW ONE Stop: 02/26/16 23:48 Last Admin: 02/27/16 00:28 Dose: 4 mg Departure - Departure Disposition: Home, Routine, Self-Care Clinical Impression: Alcohol abuse Alcoholic intoxication Qualifiers: Complication of substance-induced condition: uncomplicated Qualifier Code: ( F10.120) Alcohol abuse with intoxication, uncomplicated Condition: Good Instructions: Alcohol Intoxication (ED), Abuse of Alcohol (ED)
[2016-02-26 23:54] VITALS: TEMP 98.1
[2016-02-27 00:14] LABS: % IMMATURE GRANULYOCYTES 0.2 % (0.0-1.1); ABSOLUTE IMMATURE GRANULOCYTES 0.01 10^3/uL (0.00-0.10); ADD DIFF? NO; ADD MORPH? NO; ADD SCAN? NO; ATYPICAL LYMPHOCYTE FLAG 0 (0-99); FRAGMENT RBC FLAG 0 (0-99); HEMATOCRIT 44.2 % (40.0-51.0); HEMOGLOBIN 15.5 g/dL (13.7-17.5); LEFT SHIFT FLG 0 (0-99); LIPEMIA HEMOLYSIS FLAG 90 (0-99); MEAN CELL HEMOGLOBIN 30.2 pg (27.9-34.1); MEAN CELL HEMOGLOBIN CONCENTR. 35.1 g/dL (32.4-36.7); MEAN CELL VOLUME 86.2 fL (81.5-99.8); MEAN PLATELET VOLUME 9.2 fL (8.7-11.7); PLATELET CLUMPS FLAG 0 (0-99); PLATELET COUNT 246 10^3/uL (150-400); RED BLOOD CELL COUNT 5.13 10^6/uL (4.40-6.38); RED CELL DISTRIBUTION WIDTH 13.2 % (11.5-15.2)
[2016-02-27 00:28] LABS: ALANINE AMINOTRANSFERASE 39 IU/L (21-72); ALBUMIN 4.3 g/dL (3.5-5.0); ALKALINE PHOSPHATASE 96 IU/L (38-126); ANION GAP 18 mEq/L (8-16); ASPARTATE AMINOTRANSFERASE 34 IU/L (17-59); BILIRUBIN,TOTAL 0.5 mg/dL (0.1-1.4); BILIRUBIN-CONJUGATED 0.2 mg/dL (0.0-0.5); BILIRUBIN-UNCONJUGATED 0.3 mg/dL (0.0-1.1); CALCIUM 8.3 mg/dL (8.5-10.4); CARBON DIOXIDE 24 mEq/l (22-31); CHLORIDE 108 mEq/L (97-110); CREATININE 0.8 mg/dL (0.7-1.3); ETHANOL SERUM 299 mg/dL (0-10); GLOMERULAR FILTRATION RATE > 60; GLUCOSE 94 mg/dL (70-100); POTASSIUM 3.6 mEq/L (3.5-5.2); SODIUM 150 mEq/L (134-144); TOTAL PROTEIN 7.1 g/dL (6.3-8.2)
[2016-02-27] MEDS ORDERED: IOPAMIDOL (ISOVUE-300) 100 ML BTL IV ONE (01:11)
[2016-02-27 01:59] VITALS: BP 148/99; PULSE 89; RESP 18; O2SAT 95
--- NOTE | 2016-02-27 11:56 | CT ---
CT Scan of the Abdomen and Pelvis (With Contrast) Clinical Indications: Abdominal pain. Technique:. 90 mL of Isovue 300 were given intravenously by machine power injection. Multidetector helical CT imaging was performed from the diaphragm to the symphysis pubis. Dose reduction techniques were utilized. Findings: CT ABDOMEN: Lung bases are clear. Liver, spleen, pancreas, and kidneys enhance normally. No intraperi toneal air or free fluid. CT PELVIS: No masses or free fluid. Impression: Negative CT examination of the abdomen and pelvis with contrast. The study was performed as an emergency on-call case and discussed by telephone with Dr. Haines at 1: 40 AM hrs. The final interpretation is concordant with the original communication.
== END 2016-02-27 02:03 | disposition home or self-care (01) ==
DX: F10.120 Alcohol abuse with intoxication, uncomplicated (principal); I10 Essential (primary) hypertension; F17.200 Nicotine dependence, unspecified, uncomplicated; F10.129 Alcohol abuse with intoxication, unspecified
CPT/HCPCS: 96374; G0480; J2405; Q9967

== ENCOUNTER 2016-03-11 01:23 | Emergency (ER) | payer MEDICAID ==
[2016-03-11 01:33] VITALS: BP 136/98; TEMP 99.1
--- NOTE | 2016-03-11 01:52 | EDPHY ---
H & P Stated Complaint: c/o abd pain x 3 days med clear for long term HPI/ROS: HPI CHIEF COMPLAINT: Medical clearance for long term HISTORY OF PRESENT ILLNESS: This patient 25-year-old male, he presents emergency room for medical clearance for long term. He is under arrest. I am very familiar with him he has chronic pancreatitis. He tells me that he was drinking alcohol way earlier in the day he has not had a drink in 6 hours. He has not had any vomiting. Once Arrested he started complaining of abdominal pain. He has not had any vomiting here. On examination his abdomen is soft nontender there is no guarding or peritoneal signs. He appears well. He is asking for something to drink. Past Medical History: Chronic pancreatitis Past Surgical History: Denies significant surgical history Social History: Daily alcohol use Family History: Noncontributory ROS REVIEW OF SYSTEMS: A comprehensive 10 point review of systems is otherwise negative aside from elements mentioned in the history of present illness. Exam Constitutional triage nursing summary reviewed, vital signs reviewed, awake/ alert. Eyes normal conjunctivae and sclera, EOMI, PERRLA. HENT normal inspection, atraumatic, moist mucus membranes, no epistaxis, neck supple/ no meningismus, no raccoon eyes. Respiratory clear to auscultation bilaterally, normal breath sounds, no respiratory distress, no wheezing. Cardiovascular rate normal, regular rhythm, no murmur, no edema, distal pulses normal. Gastrointestinal specifically there is no tenderness to palpation epigastric and mid abdomen, soft, non-tender, no rebound, no guarding, normal bowel sounds , no distension, no pulsatile mass. Genitourinary no CVA tenderness. Musculoskeletal no midline vertebral tenderness, full range of motion, no calf swelling, no tenderness of extremities, no meningismus, good pulses, neurovascularly intact. Skin pink, warm, & dry, no rash, skin atraumatic. Neurologic awake, alert and oriented x 3, AAOx3, moves all 4 extremities equally, motor intact, sensory intact, CN II-XII intact, normal cerebellar, normal vision, normal speech. Psychiatric normal mood/affect. Heme/Lymph/Immune no lymphadenopathy. Differential Diagnosis: Includes but is not limited to in a particular order, chronic alcohol use, alcohol abuse, alcoholism, chronic pancreatitis Medical Decision Making: This patient appears well here nontoxic no acute distress his abdomen is soft nontender, p.o. challenge well without any vomiting he has no pain. He is medically cleared for long term. Re-evaluation: 0158: patient is resting comfortably no acute distress abdomen is soft. He appears well no vomiting. Drank water without difficulty. No indication for blood work or CT imaging he does have chronic pancreatitis. He drank his last drink 6 hours ago. Source: Patient - Personal History Current Tetanus/Diphtheria Vaccine: Yes Current Tetanus Diphtheria and Acellular Pertussis (TDAP): Yes Tetanus Vaccine Date: 2015 - Medical/Surgical History Hx Asthma: No Hx Chronic Respiratory Disease: No Hx Diabetes: No Hx Cardiac Disease: No Hx Renal Disease: No Hx Cirrhosis: No Hx Alcoholism: No Hx HIV/AIDS: No Hx Splenectomy or Spleen Trauma: No Other PMH: chronic pancreatitis. uncontrolled htn. anxiety. Alcohol abuse - Social History Smoking Status: Current every day smoker Constitutional: Initial Vital Signs Temperature (C) 37.3 C 03/11/16 01:25 Heart Rate 107 H 03/11/16 01:25 Respiratory Rate 18 03/11/16 01:25 Blood Pressure 136/98 H 03/11/16 01:25 O2 Sat (%) 97 03/11/16 01:25 O2 Delivery Mode Room Air Allergies/Adverse Reactions: tramadol Allergy (Verified 02/26/16 23:54) Home Medications: Medication Instructions Recorded Acetaminophen [Tylenol 325mg (*)] 650 mg PO Q4HRS PRN #0 tab 02/25/16 Famotidine [Pepcid 20 MG (*)] 20 mg PO BID #0 tab 02/25/16 Vitamin B Complex [SUPER B-100] 1 tab PO DAILY 02/25/16 NK [No Known Home Meds] 02/26/16 Departure - Departure Disposition: Home, Routine, Self-Care Clinical Impression: Alcohol abuse Condition: Good Instructions: Alcohol Use Disorder (ED) Additional Instructions: 1. Medically cleared for long term.
[2016-03-11 02:07] VITALS: PULSE 99; RESP 16; O2SAT 94
== END 2016-03-11 02:07 | disposition home or self-care (01) ==
DX: F10.10 Alcohol abuse, uncomplicated (principal); F17.200 Nicotine dependence, unspecified, uncomplicated

== ENCOUNTER 2016-06-04 02:00 | Emergency (ER) | payer MEDICAID ==
[2016-06-04 02:09] VITALS: RESP 16
[2016-06-04] MEDS ORDERED: FAMOTIDINE 20 MG TAB PO ONE (02:25)
[2016-06-04] MEDS ORDERED: ONDANSETRON 4 MG/2 ML VIAL IVP ONE (02:25)
[2016-06-04] MEDS ORDERED: NS 1,000 ML IV ONE (02:25)
--- NOTE | 2016-06-04 02:35 | EDPHY ---
H & P Stated Complaint: abd pain likely pancreatitis, fell on way here R hand inj Time Seen by Provider: 06/04/16 02:17 HPI/ROS: HPI The patient presents with abdominal pain in his left upper quadrant which began approximately 5 hours ago and started slowly, it is achy in nature, moderate in severity, feels like his usual pancreatitis. He does not have any associated vomiting. His last alcoholic drink was 8 hours ago. He has not had any fevers or chills. He walked here, about 2 miles. He did fall once in the snow and landed on his right hand and has some abrasions overlying his knuckles. REVIEW OF SYSTEMS Constitutional: No fever, no chills. Eyes: No discharge. ENT: No sore throat. Cardiovascular: No chest pain, no palpitations. Respiratory: No cough, no shortness of breath. Gastrointestinal: See HPI Genitourinary: No hematuria. Musculoskeletal: No back pain. Skin: No rashes. Neurological: No headache. PMHx: Chronic alcohol abuse, recurrent pancreatitis likely related to alcohol use, last CT scan performed in February of this year demonstrated no signs of pancreatitis. Lipase is are rarely elevated. Review of records shows that he has 25 visits in the last 2 years to [facility] when I contacted them about 6 months ago. Soc Hx: Alcohol abuse PHYSICAL General Appearance: Alert, no distress Eyes: Pupils equal and round no pallor or injection ENT, Mouth: Mucous membranes moist Respiratory: There are no retractions, lungs are clear to auscultation Cardiovascular: Regular rate and rhythm Gastrointestinal: Abdomen is soft with tenderness in the left upper quadrant without any rebound or guarding Neurological: A&O, moves all extremities Skin: Warm and dry, no rashes Musculoskeletal: Neck is supple non tender Extremities: symmetrical, abrasion to right 1st MCP with full range of motion Psychiatric: Patient is oriented X 3, there is no agitation Source: Patient, Old records Exam Limitations: No limitations - Personal History Current Tetanus/Diphtheria Vaccine: Yes Tetanus Vaccine Date: 2015 - Medical/Surgical History Hx Asthma: No Hx Chronic Respiratory Disease: No Hx Diabetes: No Hx Cardiac Disease: No Hx Renal Disease: No Hx Cirrhosis: No Hx Alcoholism: No Hx HIV/AIDS: No Hx Splenectomy or Spleen Trauma: No Other PMH: PMHx: chronic pancreatitis, uncontrolled htn, anxiety, alcohol abuse. PSHx: denies - Social History Smoking Status: Current every day smoker Constitutional: Initial Vital Signs Temperature (C) 36.3 C 06/04/16 02:06 Heart Rate 109 H 06/04/16 02:06 Respiratory Rate 16 06/04/16 02:06 Blood Pressure 137/91 H 06/04/16 02:06 O2 Sat (%) 95 06/04/16 02:06 O2 Delivery Mode Room Air Allergies/Adverse Reactions: tramadol Allergy (Verified 02/26/16 23:54) Home Medications: Medication Instructions Recorded NK [No Known Home Meds] 06/04/16 Medical Decision Making Differential Diagnosis: This is a 26-year-old man with chronic alcohol abuse, chronic pancreatitis according to his report who presents with acute onset of left upper quadrant abdominal pain after drinking alcohol today. On exam, he is generally well appearing, though has tenderness in his left upper quadrant. Differential diagnosis includes acute pancreatitis, alcoholic gastritis, gastroenteritis, colitis, medication seeking. In the emergency room, basic labs were checked and were unremarkable. He was given medication for pain, however I avoided any opiates or benzodiazepines. He was upset by this and asked for Dilaudid or morphine. I told him that I do not think this is good choice of medication for his particular pain. I am not even sure if he truly has pancreatitis as his lipase is normal and recent CT scan did not demonstrate any signs of pancreatitis. I have given him information for [facility] to arrange for follow-up. - Data Points Laboratory Results: Laboratory Results 06/04/16 02:26 06/04/16 02:35 06/04/16 06/04/16 02:35 02:26 WBC 7.35 10^3/uL 10^3/uL (3.80-9.50) RBC 5.48 10^6/uL 10^6/uL (4.40-6.38) Hgb 16.6 g/dL g/dL (13.7-17.5) Hct 47.4 % % (40.0-51.0) MCV 86.5 fL fL (81.5-99.8) MCH 30.3 pg pg (27.9-34.1) MCHC 35.0 g/dL g/dL (32.4-36.7) RDW 12.5 % % (11.5-15.2) Plt Count 290 10^3/uL 10^3/uL (150-400) MPV 9.5 fL fL (8.7-11.7) Neut % (Auto) 50.9 % % (39.3-74.2) Lymph % (Auto) 44.5 % % (15.0-45.0) [place] % (Auto) 4.1 % L % (4.5-13.0) Eos % (Auto) 0.1 % L % (0.6-7.6) Baso % (Auto) 0.3 % % (0.3-1.7) Nucleat RBC Rel Count 0.0 % % (0.0-0.2) Absolute Neuts (auto) 3.74 10^3/uL 10^3/uL (1.70-6.50) Absolute Lymphs (auto) 3.27 10^3/uL H 10^3/uL (1.00-3.00) Absolute Monos (auto) 0.30 10^3/uL 10^3/uL (0.30-0.80) Absolute Eos (auto) 0.01 10^3/uL L 10^3/uL (0.03-0.40) Absolute Basos (auto) 0.02 10^3/uL 10^3/uL (0.02-0.10) Absolute Nucleated RBC 0.00 10^3/uL 10^3/uL (0-0.01) Immature Gran % 0.1 % % (0.0-1.1) Immature Gran # 0.01 10^3/uL 10^3/uL (0.00-0.10) Sodium 153 mEq/L H mEq/L (134-144) Potassium 3.7 mEq/L mEq/L (3.5-5.2) Chloride 109 mEq/L mEq/L (97-110) Carbon Dioxide 27 mEq/l mEq/l (22-31) Anion Gap 17 mEq/L H mEq/L (8-16) BUN 12 mg/dL mg/dL (7-23) Creatinine 1.0 mg/dL mg/dL (0.7-1.3) Estimated GFR > 60 Glucose 95 mg/dL mg/dL (70-100) Calcium 9.1 mg/dL mg/dL (8.5-10.4) Total Bilirubin 0.6 mg/dL mg/dL (0.1-1.4) Conjugated Bilirubin 0.4 mg/dL mg/dL (0.0-0.5) Unconjugated Bilirubin 0.2 mg/dL mg/dL (0.0-1.1) AST 26 IU/L IU/L (17-59) ALT 30 IU/L IU/L (21-72) Alkaline Phosphatase 82 IU/L IU/L (38-126) Total Protein 8.0 g/dL g/dL (6.3-8.2) Albumin 5.0 g/dL g/dL (3.5-5.0) Lipase 42.0 IU/L IU/L (23-300) Medications Given: Discontinued Medications Famotidine (Pepcid) 20 mg PO EDNOW ONE Stop: 06/04/16 02:26 Last Admin: 06/04/16 02:30 Dose: 20 mg Sodium Chloride (Ns) 1,000 mls @ 0 mls/hr IV ONCE ONE PRN Reason: Wide Open Stop: 06/04/16 02:26 Last Admin: 06/04/16 02:30 Dose: 1,000 mls Ondansetron HCl (Zofran) 4 mg IVP EDNOW ONE Stop: 06/04/16 02:26 Last Admin: 06/04/16 02:30 Dose: 4 mg Departure - Departure Disposition: Home, Routine, Self-Care Clinical Impression: Alcohol abuse Abdominal pain Qualifiers: Abdominal location: left upper quadrant Qualified Code(s): R10.12 - Left upper quadrant pain Condition: Good Instructions: Pancreatitis (ED) Additional Instructions: Please avoid alcohol. You should call the [facility] to obtain a primary Referrals: [facility] [Outside] - As per Instructions
[2016-06-04 02:48] LABS: % IMMATURE GRANULYOCYTES 0.1 % (0.0-1.1); ABSOLUTE IMMATURE GRANULOCYTES 0.01 10^3/uL (0.00-0.10); ADD DIFF? NO; ADD MORPH? NO; ADD SCAN? NO; ATYPICAL LYMPHOCYTE FLAG 10 (0-99); FRAGMENT RBC FLAG 0 (0-99); HEMATOCRIT 47.4 % (40.0-51.0); HEMOGLOBIN 16.6 g/dL (13.7-17.5); LEFT SHIFT FLG 0 (0-99); LIPEMIA HEMOLYSIS FLAG 90 (0-99); MEAN CELL HEMOGLOBIN 30.3 pg (27.9-34.1); MEAN CELL VOLUME 86.5 fL (81.5-99.8); MEAN PLATELET VOLUME 9.5 fL (8.7-11.7); PLATELET CLUMPS FLAG 0 (0-99); PLATELET COUNT 290 10^3/uL (150-400); RED BLOOD CELL COUNT 5.48 10^6/uL (4.40-6.38); RED CELL DISTRIBUTION WIDTH 12.5 % (11.5-15.2)
[2016-06-04] MEDS ORDERED: FAMOTIDINE 20 MG/2 ML SDV ONE (02:50)
[2016-06-04 02:59] LABS: ALANINE AMINOTRANSFERASE 30 IU/L (21-72); ALKALINE PHOSPHATASE 82 IU/L (38-126); ANION GAP 17 mEq/L (8-16); ASPARTATE AMINOTRANSFERASE 26 IU/L (17-59); BILIRUBIN,TOTAL 0.6 mg/dL (0.1-1.4); BILIRUBIN-CONJUGATED 0.4 mg/dL (0.0-0.5); BILIRUBIN-UNCONJUGATED 0.2 mg/dL (0.0-1.1); CALCIUM 9.1 mg/dL (8.5-10.4); CARBON DIOXIDE 27 mEq/l (22-31); CHLORIDE 109 mEq/L (97-110); GLOMERULAR FILTRATION RATE > 60; GLUCOSE 95 mg/dL (70-100); POTASSIUM 3.7 mEq/L (3.5-5.2); SODIUM 153 mEq/L (134-144)
[2016-06-04 03:39] VITALS: BP 130/76; PULSE 72; TEMP 97.9; O2SAT 96
== END 2016-06-04 03:38 | disposition home or self-care (01) ==
DX: R10.12 Left upper quadrant pain (principal); F10.10 Alcohol abuse, uncomplicated; I10 Essential (primary) hypertension; F17.200 Nicotine dependence, unspecified, uncomplicated
CPT/HCPCS: 96374; J2405

== ENCOUNTER 2016-06-23 22:48 | Emergency (ER) | payer MEDICAID ==
[2016-06-23 22:56] VITALS: RESP 16; TEMP 97.9
[2016-06-23 23:34] LABS: % IMMATURE GRANULYOCYTES 0.1 % (0.0-1.1); ABSOLUTE IMMATURE GRANULOCYTES 0.01 10^3/uL (0.00-0.10); ADD DIFF? NO; ADD MORPH? NO; ADD SCAN? NO; ATYPICAL LYMPHOCYTE FLAG 10 (0-99); FRAGMENT RBC FLAG 0 (0-99); HEMOGLOBIN 16.8 g/dL (13.7-17.5); LEFT SHIFT FLG 0 (0-99); LIPEMIA HEMOLYSIS FLAG 90 (0-99); MEAN CELL HEMOGLOBIN 30.4 pg (27.9-34.1); MEAN CELL HEMOGLOBIN CONCENTR. 34.3 g/dL (32.4-36.7); MEAN CELL VOLUME 88.8 fL (81.5-99.8); MEAN PLATELET VOLUME 9.8 fL (8.7-11.7); PLATELET CLUMPS FLAG 0 (0-99); PLATELET COUNT 268 10^3/uL (150-400); RED BLOOD CELL COUNT 5.52 10^6/uL (4.40-6.38)
--- NOTE | 2016-06-23 23:37 | EDPHY ---
H & P Time Seen by Provider: 06/23/16 22:57 HPI/ROS: CHIEF COMPLAINT: Abdominal pain HISTORY OF PRESENT ILLNESS: 26-year-old male presents to the emergency department with the [place] motorcycle police officer for medical clearance for fdc. Patient admits to drinking alcohol several hours ago and now has epigastric abdominal pain. He feels that he is having a flare-up of his chronic pancreatitis. States he typically gets this pain when he drinks alcohol. He has had no vomiting. No diarrhea. No melena. No blood in his stool. No fevers or chills. No chest pain or difficulty breathing. No reported trauma. REVIEW OF SYSTEMS: Constitutional: No fever, no chills. Eyes: No double or blurry vision. ENT: No sore throat. Respiratory: No cough, no shortness of breath. Cardiac: No chest pain. Gastrointestinal: Abdominal pain as above. No vomiting or diarrhea Genitourinary: No dysuria. Musculoskeletal: No neck or back pain. Skin: No rashes. Neurological: No headache. Past Medical/Surgical History: Alcoholism, chronic pancreatitis Social History: Single Smoking Status: Current every day smoker Physical Exam: General Appearance: Alert, no distress. 146/93, heart rate 94, 95% on room air. sailing officer at bedside. Eyes: Pupils equal and round. Extraocular motions are all intact. ENT: Mouth: Mucous membranes moist. Respiratory: No wheezing, rhonchi, or rales, lungs are clear to auscultation. Cardiovascular: Regular rate and rhythm. Gastrointestinal: Abdomen is soft. He has tenderness with palpation in the epigastric area. He has no rebound, guarding or masses noted. No CVA tenderness bilaterally. Neurological: Alert and oriented x 3, cranial nerves II through XII grossly intact Skin: Warm and dry, no rashes. Musculoskeletal: Nontender to palpate along the cervical, thoracic or lumbar spine. Neck is supple. Extremities: Full range of motion and no peripheral edema. Psychiatric: Patient is oriented X 3, there is no agitation. Constitutional: Initial Vital Signs Temperature (C) 36.6 C 06/23/16 22:55 Heart Rate 94 06/23/16 22:55 Respiratory Rate 16 06/23/16 22:55 Blood Pressure 146/93 H 06/23/16 22:55 O2 Sat (%) 95 06/23/16 22:55 O2 Delivery Mode Room Air Allergies/Adverse Reactions: tramadol Allergy (Verified 06/23/16 22:54) Home Medications: Medication Instructions Recorded NK [No Known Home Meds] 06/04/16 Medical Decision Making ED Course/Re-evaluation: 26-year-old male presents to the emergency department with abdominal pain. He apparently has chronic pancreatitis. The patient had laboratory studies drawn the patient does not have an elevation of his white blood cell count. His liver function tests are all within normal limits. Chemistries were normal. Lipase was normal. Patient is not vomiting. His vital signs are stable. I do not think he has an acute abdomen. He will be discharged with the [place] motorcycle police officer and has been medically cleared for fdc. The patient has had 2 CT scans of the abdomen and pelvis with IV contrast just this year. He did have evidence of a fatty liver however no other abnormalities noted. I discussed with the patient his laboratory findings. I do not think CT imaging of the abdomen pelvis is indicated. I explained my reasoning for this. Patient understood. He has been medically cleared and will be discharged with the [place] motorcycle police officer. Differential Diagnosis: Including but not limited to pancreatitis, cholecystitis, cholelithiasis, electrolyte abnormality, GERD, peptic ulcer disease, chronic pain - Data Points Laboratory Results: Laboratory Results 06/23/16 23:25 06/23/16 23:25 06/23/16 06/23/16 23:25 23:25 WBC 6.90 10^3/uL 10^3/uL (3.80-9.50) RBC 5.52 10^6/uL 10^6/uL (4.40-6.38) Hgb 16.8 g/dL g/dL (13.7-17.5) Hct 49.0 % % (40.0-51.0) MCV 88.8 fL fL (81.5-99.8) MCH 30.4 pg pg (27.9-34.1) MCHC 34.3 g/dL g/dL (32.4-36.7) RDW 14.0 % % (11.5-15.2) Plt Count 268 10^3/uL 10^3/uL (150-400) MPV 9.8 fL fL (8.7-11.7) Neut % (Auto) 64.6 % % (39.3-74.2) Lymph % (Auto) 31.3 % % (15.0-45.0) [place] % (Auto) 3.6 % L % (4.5-13.0) Eos % (Auto) 0.0 % L % (0.6-7.6) Baso % (Auto) 0.4 % % (0.3-1.7) Nucleat RBC Rel Count 0.0 % % (0.0-0.2) Absolute Neuts (auto) 4.45 10^3/uL 10^3/uL (1.70-6.50) Absolute Lymphs (auto) 2.16 10^3/uL 10^3/uL (1.00-3.00) Absolute Monos (auto) 0.25 10^3/uL L 10^3/uL (0.30-0.80) Absolute Eos (auto) 0.00 10^3/uL L 10^3/uL (0.03-0.40) Absolute Basos (auto) 0.03 10^3/uL 10^3/uL (0.02-0.10) Absolute Nucleated RBC 0.00 10^3/uL 10^3/uL (0-0.01) Immature Gran % 0.1 % % (0.0-1.1) Immature Gran # 0.01 10^3/uL 10^3/uL (0.00-0.10) Sodium 149 mEq/L H mEq/L (134-144) Potassium 4.1 mEq/L mEq/L (3.5-5.2) Chloride 109 mEq/L mEq/L (97-110) Carbon Dioxide 22 mEq/l mEq/l (22-31) Anion Gap 18 mEq/L H mEq/L (8-16) BUN 14 mg/dL mg/dL (7-23) Creatinine 0.9 mg/dL mg/dL (0.7-1.3) Estimated GFR > 60 Glucose 93 mg/dL mg/dL (70-100) Calcium 9.3 mg/dL mg/dL (8.5-10.4) Total Bilirubin 0.6 mg/dL mg/dL (0.1-1.4) Conjugated Bilirubin 0.5 mg/dL mg/dL (0.0-0.5) Unconjugated Bilirubin 0.1 mg/dL mg/dL (0.0-1.1) AST 29 IU/L IU/L (17-59) ALT 34 IU/L IU/L (21-72) Alkaline Phosphatase 81 IU/L IU/L (38-126) Total Protein 7.9 g/dL g/dL (6.3-8.2) Albumin 5.2 g/dL H g/dL (3.5-5.0) Lipase 55.0 IU/L IU/L (23-300) Ethyl Alcohol 325 mg/dL H mg/dL (0-10) Departure - Departure Disposition: Home, Routine, Self-Care Clinical Impression: History of chronic pancreatitis Abdominal pain Qualifiers: Abdominal location: epigastric Qualified Code(s): R10.13 - Epigastric pain Condition: Good Instructions: Abuse of Alcohol (ED), Acute Abdominal Pain (ED) Additional Instructions: You have been medically cleared for fdc. You should stopped drinking alcohol.
[2016-06-23 23:46] LABS: ALANINE AMINOTRANSFERASE 34 IU/L (21-72); ALBUMIN 5.2 g/dL (3.5-5.0); ALKALINE PHOSPHATASE 81 IU/L (38-126); ANION GAP 18 mEq/L (8-16); ASPARTATE AMINOTRANSFERASE 29 IU/L (17-59); BILIRUBIN,TOTAL 0.6 mg/dL (0.1-1.4); BILIRUBIN-CONJUGATED 0.5 mg/dL (0.0-0.5); BILIRUBIN-UNCONJUGATED 0.1 mg/dL (0.0-1.1); CALCIUM 9.3 mg/dL (8.5-10.4); CARBON DIOXIDE 22 mEq/l (22-31); CHLORIDE 109 mEq/L (97-110); CREATININE 0.9 mg/dL (0.7-1.3); GLOMERULAR FILTRATION RATE > 60; GLUCOSE 93 mg/dL (70-100); POTASSIUM 4.1 mEq/L (3.5-5.2); SODIUM 149 mEq/L (134-144); TOTAL PROTEIN 7.9 g/dL (6.3-8.2)
[2016-06-23 23:55] LABS: ETHANOL SERUM 325 mg/dL (0-10)
[2016-06-24 00:01] VITALS: BP 133/74; PULSE 66; O2SAT 96
== END 2016-06-24 00:01 | disposition home or self-care (01) ==
DX: R10.13 Epigastric pain (principal); F17.200 Nicotine dependence, unspecified, uncomplicated; Z87.19 Personal history of other diseases of the digestive system
CPT/HCPCS: G0480

== ENCOUNTER 2016-11-27 21:55 | Emergency (ER) | payer SELFPAY ==
[2016-11-27 22:05] VITALS: BP 148/91; PULSE 92; RESP 18; TEMP 98.2; O2SAT 97
--- NOTE | 2016-11-27 22:28 | EDPHY ---
H & P Stated Complaint: abd pain hx pancreatitis med clear for halfway Time Seen by Provider: 11/27/16 22:02 HPI/ROS: HPI The patient presents for medical clearance for halfway. He is brought in by police in their custody. He says he has abdominal pain which is diffuse, achy, constant and has been present for several months. This is associated with nausea. His pain is worse when he drinks any fluids. He says he last drink alcohol about 8 hours ago. He has not had any vomiting here. The patient has a longstanding history of chronic pancreatitis, he has multiple ER visits here and multiple other institutions for this. His pancreatitis seems to stem from his alcohol use. He has never had CT scan evidence of any complications of pancreatitis. REVIEW OF SYSTEMS Constitutional: No fever, no chills. Eyes: No discharge. ENT: No sore throat. Cardiovascular: No chest pain, no palpitations. Respiratory: No cough, no shortness of breath. Gastrointestinal: See HPI Genitourinary: No hematuria. Musculoskeletal: No back pain. Skin: No rashes. Neurological: No headache. PMHx: Chronic abdominal pain versus pancreatitis Soc Hx: Housed, severe alcohol abuse PHYSICAL General Appearance: Alert, no distress Eyes: Pupils equal and round no pallor or injection ENT, Mouth: Mucous membranes moist Respiratory: There are no retractions, lungs are clear to auscultation Cardiovascular: Regular rate and rhythm Gastrointestinal: Abdomen is soft and non-tender, no masses, bowel sounds normal Neurological: A&O, moves all extremities Skin: Warm and dry, no rashes Musculoskeletal: Neck is supple non tender Extremities: symmetrical, full range of motion Psychiatric: Patient is oriented X 3, there is no agitation Source: Patient, Old records Exam Limitations: No limitations - Personal History Current Tetanus/Diphtheria Vaccine: Yes Current Tetanus Diphtheria and Acellular Pertussis (TDAP): Yes Tetanus Vaccine Date: 2015 - Medical/Surgical History Hx Asthma: No Hx Chronic Respiratory Disease: No Hx Diabetes: No Hx Cardiac Disease: No Hx Renal Disease: No Hx Cirrhosis: No Hx Alcoholism: Yes Hx HIV/AIDS: No Hx Splenectomy or Spleen Trauma: No Other PMH: PMHx: chronic pancreatitis, uncontrolled htn, anxiety, alcohol abuse. PSHx: denies - Social History Smoking Status: Current every day smoker Constitutional: Initial Vital Signs Temperature (C) 36.8 C 11/27/16 22:03 Heart Rate 92 11/27/16 22:03 Respiratory Rate 18 11/27/16 22:03 Blood Pressure 148/91 H 11/27/16 22:03 O2 Sat (%) 97 11/27/16 22:03 O2 Delivery Mode Room Air Allergies/Adverse Reactions: tramadol Allergy (Verified 06/23/16 22:54) Home Medications: Medication Instructions Recorded Ondansetron Odt [Zofran Odt 4 mg 4 mg PO Q4 PRN #10 tab 11/27/16 (*)] Medical Decision Making Differential Diagnosis: 26-year-old male brought in by police for medical clearance for halfway, with history of chronic abdominal pain which she describes as chronic pancreatitis related to alcohol use, now complaining of his usual abdominal pain with nausea and vomiting. He has normal vital signs and benign abdominal exam in the emergency department. He is asking that we check lab tests, however I do not think they are indicated as his pain is at its baseline and he has had this pain for many months now. I am not concerned about complications of pancreatitis such as pseudocyst. He was upset that we could not do more blood test. I explained that they are not indicated. He will be discharged into police custody. Departure - Departure Disposition: Home, Routine, Self-Care Clinical Impression: Alcohol abuse, Medical clearance for incarceration Abdominal pain Qualifiers: Abdominal location: generalized Qualified Code(s): R10.84 - Generalized abdominal pain Condition: Good Instructions: Abuse of Alcohol (ED) Additional Instructions: If your having abdominal pain, you should drink only clear liquids until your feeling better. After that, you can try a bland diet. I have given you a prescription for Zofran for vomiting if needed. Referrals: [facility],. [Clinic] - As per Instructions Prescriptions: Ondansetron Odt [Zofran Odt 4 mg (*)] 4 mg PO Q4 PRN #10 tab PRN Reason: Nausea/Vomiting, Can'T Take Po
== END 2016-11-27 22:47 | disposition home or self-care (01) ==
DX: R10.84 Generalized abdominal pain (principal); F10.10 Alcohol abuse, uncomplicated; F17.200 Nicotine dependence, unspecified, uncomplicated; I10 Essential (primary) hypertension

== ENCOUNTER 2017-05-07 00:43 | Emergency (ER) | payer MEDICAID ==
[2017-05-07] MEDS ORDERED: NS 1,000 ML IV ONE ×2 (00:46)
[2017-05-07] MEDS ORDERED: FAMOTIDINE 20 MG/NACL 50 ML IV ONE (00:46)
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
[2017-05-07 00:51] VITALS: TEMP 98.6
[2017-05-07 01:01] LABS: PLATELET COUNT 330 10^3/uL (150-400)
[2017-05-07 01:03] VITALS: RESP 16
[2017-05-07] MEDS ORDERED: SKIN ADHESIVE (DERMABOND) 1 EACH TP ONE (01:32)
[2017-05-07 01:43] VITALS: BP 161/105; PULSE 105; O2SAT 94
[2017-05-07] MEDS ORDERED: KETOROLAC 15 MG/1 ML SDV IVP ONE (01:44)
--- NOTE | 2017-05-07 11:14 | ASDISCHSUM ---
Discharge Information Plan Status:Home with No Needs Medically Cleared to Leave: Discharge Date:05/07/2017 02:02 AM CM D/C Disposition:Law Enforcement/Court/Longterm ADT D/C Disposition:Home, Routine, Self-Care Projected Discharge Date:05/07/2017 02:02 AM Transportation at D/C: Discharge Delay Reason: Follow-Up Date:05/07/2017 02:02 AM Discharge Slot: Final Diagnosis: Placement Information Patient Contact Information Contact Name:ALISHA Relationship:Other Address: Work Phone: City: [facility] Phone: State/Zip Code: Email: Financial Information Financial Class:Medicaid Primary Plan Desc:[employer] Primary Plan Number:[id number] Secondary Plan Desc: Secondary Plan Number: Assessment Information Intervention Information
== END 2017-05-07 02:02 | disposition home or self-care (01) ==
LOC: EDUNIT#
PROC: 0HQ1XZZ Repair Face Skin, External Approach (ICD-10-PCS; principal; 2017-05-07)
DX: S01.81XA Laceration without foreign body of other part of head, initial encounter (principal); R10.84 Generalized abdominal pain; F10.129 Alcohol abuse with intoxication, unspecified; R60.9 Edema, unspecified; I10 Essential (primary) hypertension; F17.200 Nicotine dependence, unspecified, uncomplicated; E86.9 Volume depletion, unspecified; W01.198A Fall on same level from slipping, tripping and stumbling with subsequent striking against other object, initial encounter; Y92.480 Sidewalk as the place of occurrence of the external cause; Y93.83 Activity, rough housing and horseplay
CPT/HCPCS: 96374; J1885

== ENCOUNTER 2017-05-18 07:20 | Emergency (ER) | payer MEDICAID ==
--- NOTE | 2017-05-18 07:56 | EDPHY ---
Addendum entered and electronically signed by Fransico Ortiz MD 05/20/17 05: 36: 0536AM: 05/20/17: Patient here on M1 hold for suicidal ideation, subsequently found to be positive for methamphetamine, receive Zyprexa yesterday was excessively sleepy unable to fully get mental health evaluation, however express suicidal ideation still. Plan will be for placement today. There has been no acute events overnight patient has been sleeping. Patient remains on M1 hold. Patient still endorsing suicidal thoughts. [facility] seek placement. Patient is homeless. History of anxiety, substance abuse, additionally on scheduled PenVee K for dental infection. Signed over to Dr. Roberson at 7am Shift-Change. Addendum entered and electronically signed by Nelia Neely MD 05/19/17 22:10 : 10:15 p.m. On May 19: I had assumed care of this patient from Dr. Kelvin Sanabria at 3:00 p.m.. His patient had been evaluated at 7:00 a.m. This morning , but had been pacing and complaining of significant insomnia. He received Zyprexa which helped him sleep, however, he was too sedated at 3 o'clock this afternoon in order to be evaluated. Mental health returned at 8:00 p.m. For re- evaluation. Patient is no longer delusional but continues to express suicidal ideation. Patient evidently is still somewhat disorganized and unable to fully cooperate with mental health evaluation. I held a long discussion with the evaluated from [facility]. Patient will remain in the emergency department tonight. Recommendations are that the patient be placed in the morning. He does require a complete mental health evaluation at this point is not fully able to participate in the evaluation. Patient has recently been set up to obtain care via [facility] but did not follow through with his appointments. Given his inability to be compliant with outpatient therapy as well as his history of significant suicidality last night, I agree that placement should be sought in the morning. The patient's care was assumed by Dr. Fransico Ortiz at 11:00 p.m. Original Note: H & P Smoking Status: Current every day smoker Time Seen by Provider: 05/18/17 07:41 HPI/ROS: CHIEF COMPLAINT: Suicidal HISTORY OF PRESENT ILLNESS: 26-year-old male with anxiety and alcohol abuse presents with suicidal ideation. He was found on top of a roof, claiming that he was going to jump off the roof and kill himself. However, the police were able to talk him down and he climbed off the roof. Placed on an M1 hold by PD. Alcohol and methamphetamine abuse in the past 24 hr. He had his left lower wisdom tooth removed 1 week ago and is taking penicillin and Percocet. REVIEW OF SYSTEMS: Constitutional: No fever, no chills Eyes: No visual changes ENT: No sore throat Respiratory: No cough, no shortness of breath Cardiac: No chest pain Gastrointestinal: No nausea, no vomiting, no abdominal pain Genitourinary: no dysuria Musculoskeletal: No leg pain or swelling Skin: No rash Neurological: No headache, no weakness Psychiatric: Anxiety (Jenny Lewis) Past Medical/Surgical History: Anxiety Hypertension, uncontrolled Alcohol abuse Chronic pancreatitis (Jenny Lewis) Social History: Homeless (Jenny Lewis) Physical Exam: General Appearance: Alert, cooperative, relaxed Eyes: Pupils equal and round, no conjunctival pallor or injection ENT, Mouth: left mandible: tenderness around the prior wisdom tooth site, no fluctuance or drainage, no facial swelling Neck: Normal inspection Respiratory: Lungs are clear to auscultation Cardiovascular: Regular rate and rhythm Gastrointestinal: Abdomen is soft and nontender Neurological: A&O, nonfocal exam Skin: Warm and dry Extremities: Normal inspection Psychiatric: Mood and affect normal (Jenny Lewis) Constitutional: Initial Vital Signs Temperature (C) 36.8 C 05/18/17 07:32 Heart Rate 101 H 05/18/17 07:32 Respiratory Rate 18 05/18/17 07:32 Blood Pressure 140/96 H 05/18/17 07:32 O2 Sat (%) 98 05/18/17 07:32 O2 Delivery Mode Room Air Allergies/Adverse Reactions: tramadol Allergy (Verified 06/23/16 22:54) Home Medications: Medication Instructions Recorded Citalopram 05/07/17 Penicillin V Potassium 05/18/17 Percocet 5-325 mg Tablet 05/18/17 Medical Decision Making ED Course/Re-evaluation: This patient is on an M1 hold for suicidal ideation. Laboratory studies positive for methamphetamine. This will delay his evaluation for 12 hr. Patient understands. 3:00 p.m.-signed over to Dr. Neely at shift change. (Jenny Lewis) 0530: No acute events overnight. Patient has been sleeping. Patient on M1 hold. Pending re-evaluation this morning. (Fransico Ortiz) 7:20 a.m. May 19 patient's care transferred to or at 7:00 a.m.. The patient has been re-evaluated. He continues to have delusions including that people are after him and secured urine has been protecting him from bolus flank through their also that he has an appointment this morning with president Keesha who has been helping him navigate the court system. Mental health feels that he is still under the influence of methamphetamine and will return at noon to re -evaluate him then. They feel based on previous experience with the patient that he tends to have these delusions and hallucinations while he was high but they resolve when he is sober. 3:00 p.m. mental Health came back to evaluate the patient again however he was sleeping. They asked to see him tomorrow morning. But we have encouraged them to see and evaluate him again this afternoon when he wakes up. Will call them when he does. Care transferred to Dr. Neely at shift change. (Kelvin Sanabria) Other Provider: I assumed care of this patient from Dr. Jenny Lewis at 3:00 p.m., change of shift. We are awaiting evaluation by mental health at 7:00 p.m., 12 hr after a tox screen was positive for methamphetamines. Patient was seen by mental health at 7:15 p.m.. They discussed the case with me at this time. Patient is quite paranoid, tangential, and still appears to be under the influence of significant methamphetamines. He has no psychiatric history. They request further observation until the morning. Patient is homeless and has a court appointment tomorrow morning. They will plan to re- evaluate him in the auto wheel alignment specialist hours, if he has cleared from his methamphetamine intoxication, he most likely will be able to be discharged. Patient's care will be assumed by Dr. Fransico Ortiz at 11:00 p.m., change of shift. (Nelia Neely) At 845am patient not suicidal, mental health at evaluation is complete and the recommendation is to discharge him. He is not psychotic or suicidal at this time. Recommendation of evaluate her and Lazo is to release with outpatient followup. (Redd Roberson) - Data Points Laboratory Results: Laboratory Results 05/18/17 07:55 05/18/17 07:55 Medications Given: Penicillin V Potassium (Pen Vk) 500 mg PO Q8 LISA PRN Reason: Protocol Stop: 06/17/17 23:44 Last Admin: 05/20/17 06:35 Dose: 500 mg Discontinued Medications Acetaminophen (Tylenol) 650 mg PO EDNOW ONE Stop: 05/19/17 02:02 Last Admin: 05/19/17 02:02 Dose: 650 mg Citalopram Hydrobromide (Celexa) 20 mg PO DAILY ONE Stop: 05/19/17 23:59 Last Admin: 05/20/17 00:37 Dose: 20 mg Ibuprofen (Motrin) 600 mg PO EDNOW ONE Stop: 05/18/17 18:35 Last Admin: 05/18/17 18:38 Dose: 600 mg Olanzapine (Zyprexa Zydis) 10 mg PO EDNOW ONE Stop: 05/19/17 10:09 Last Admin: 05/19/17 10:25 Dose: 10 mg Penicillin V Potassium (Pen Vk) 500 mg PO EDNOW ONE Stop: 05/18/17 12:16 Last Admin: 05/18/17 12:26 Dose: 500 mg Departure - Departure Disposition: Home, Routine, Self-Care Clinical Impression: Polysubstance abuse, Acute psychosis, Anxiety Condition: Good Instructions: Methamphetamine Abuse (ED), Generalized Anxiety Disorder (ED) Referrals: [facility],. [Clinic] - As per Instructions
[2017-05-18 08:03] LABS: PLATELET COUNT 229 10^3/uL (150-400)
[2017-05-18] MEDS ORDERED: PENICILLIN VK 250 MG/5 ML PO SCH ×2 (12:00→22:00)
[2017-05-18] MEDS ORDERED: PENICILLIN VK 500 MG TAB PO ONE (12:15)
[2017-05-18] MEDS ORDERED: IBUPROFEN 600 MG TAB PO ONE (18:34)
[2017-05-18] MEDS: PENICILLIN VK 500 MG TAB PO SCH (23:00)
[2017-05-19] MEDS: PENICILLIN VK 500 MG TAB PO SCH ×5 (00:08→23:49)
[2017-05-19] MEDS ORDERED: ACETAMINOPHEN 325 MG TAB ONE (01:57)
[2017-05-19] MEDS ORDERED: ACETAMINOPHEN 325 MG TAB PO ONE (02:01)
[2017-05-19] MEDS ORDERED: OLANZapine DISINTEGR 10 MG TAB PO ONE (10:08)
[2017-05-19] MEDS ORDERED: CITALOPRAM 20 MG TAB PO ONE (23:58)
[2017-05-20] MEDS: PENICILLIN VK 500 MG TAB PO SCH (06:35)
[2017-05-20 07:43] VITALS: BP 165/100
== END 2017-05-20 09:25 | disposition home or self-care (01) ==
LOC: EDUNIT# → EEVIPCON 07:20
DX: F19.10 Other psychoactive substance abuse, uncomplicated (principal); F41.9 Anxiety disorder, unspecified; F23 Brief psychotic disorder; I10 Essential (primary) hypertension; F17.200 Nicotine dependence, unspecified, uncomplicated
CPT/HCPCS: 80305; G0480

== ENCOUNTER 2017-05-21 07:52 | Emergency (ER) | payer MEDICAID ==
--- NOTE | 2017-05-21 07:58 | EDPHY ---
H & P Source: Patient, Old records Exam Limitations: No limitations - Personal History Tetanus Vaccine Date: 2015 - Medical/Surgical History Hx Asthma: No Hx Chronic Respiratory Disease: No Hx Diabetes: No Hx Cardiac Disease: No Hx Renal Disease: No Hx Cirrhosis: No Hx Alcoholism: Yes Hx HIV/AIDS: No Hx Splenectomy or Spleen Trauma: No Other PMH: PMHx: chronic pancreatitis, uncontrolled htn, anxiety, alcohol abuse. PSHx: denies - Social History Smoking Status: Current every day smoker Time Seen by Provider: 05/21/17 07:57 HPI/ROS: HPI: This is a 27-year-old male who presents with Chief Complaint: Suicidal ideation Location: psych Quality: Thoughts of killing himself Duration: Last several weeks Signs and Symptoms: No auditory hallucination, no visual hallucinations, no recent alcohol use, + suicidal thoughts, no homicidal thoughts, + paranoia Timing: Worsening Severity: [id number] Context: Patient is well known to the ER has a history of chronic alcohol abuse , homeless, presents for the 2nd time in the last few days with complaints of worsening thoughts of ending his life. He believes that there is nothing to live for. He does not have an active plan. He was incarcerated in November of 2016 from what I can gather parole violation of restraining order against him with his girlfriend. Patient reports that he was discharged from long-term in March. Lost his apartment. Became homeless again. He reports that he has individuals unknown to him that have hacked into his Facebook account and [employer] account. Reports that they are trying to room him. Every time he goes into a business, the so called individuals called the business estate attorney and notify them that he is aggressive and does not have any money. He is then politely asked to leave. He reports now they have hacked into his cell phone. He denies any financial hacking as he does not have any bank accounts and reports that he has half million dollars in debt. He reports due to being severely depressed, not been able to talk to his girlfriend; he used methamphetamine-inhaled several days ago, he reports that now that he is on the street, stays up at night, this was something that was encouraged by his friends on the street. He had only use methamphetamine 1 time prior to this. He reports that his drug of choice is normally alcohol. He reports that he has not used alcohol in several days. Denies any history of alcohol withdrawal seizures. Denies any abdominal pain/ nausea/vomiting/diarrhea/fever. Reports last meal was yesterday evening around 5:00 p.m. As a cook out was sponsored for local homeless people. He reports that he has no friend or family support system. Denies any prior history of psychiatric inpatient admission or diagnoses. Patient reports that he has notified the police of these harassing individuals. Modifying Factors: Comment: ROS: see HPI Constitutional: No fever, no chills, no weight loss Eyes: No blurred vision Respiratory: No shortness of breath, no cough Cardiovascular: No chest pain Gastrointestinal: No nausea, no vomiting, no diarrhea Genitourinary: No dysuria Extremities: No myalgias Neurologic: No weakness, no numbness Skin: No rashes Hematologic: No bruising, no bleeding MEDICAL/SURGICAL/SOCIAL HISTORY: Medical history: chronic pancreatitis, uncontrolled hypertension, anxiety, alcohol abuse Surgical history: Denies Social history: Tobacco user. CONSTITUTIONAL: Cooperative, tidy, adult white male, awake and alert, no obvious distress HEENT: Atraumatic and normocephalic, PERRL, EOMI. Tympanic membranes clear. Oropharynx clear, no exudate and moist pink mucosa. Airway patent. No lymphadenopathy. No meningismus. Cardiovascular: Normal S1/S2, tachycardia, regular rhythm, without murmur rub or gallop. PULMONARY/CHEST: Symmetrical and nontender. Clear to auscultation bilaterally. Good air movement. No accessory muscle usage. ABDOMEN: Soft, nondistended, nontender, no rebound, no guarding, no peritoneal signs, no masses or organomegaly. No CVAT. EXTREMITIES: 2/2 pulses, strength 5/5, no deformities, no clubbing, no cyanosis or edema. NEUROLOGICAL: no focal neuro deficits. GCS 15. SKIN: Warm and dry, no erythema. no rash. Good capillary refill. PSYCH: Good eye contact, no flight of ideas, organized thought process, fair insight and judgment, no auditory and visual command hallucinations, + suicidal ideation with no plan, no homicidal ideation, + paranoid (Eulogio,Terra) Constitutional: Initial Vital Signs Temperature (C) 37 C 05/21/17 07:55 Heart Rate 110 H 05/21/17 07:55 Respiratory Rate 16 05/21/17 07:55 Blood Pressure 170/117 H 05/21/17 07:55 O2 Sat (%) 98 05/21/17 07:55 O2 Delivery Mode Room Air Allergies/Adverse Reactions: tramadol Allergy (Verified 05/21/17 08:13) Home Medications: Medication Instructions Recorded Citalopram 05/07/17 Penicillin V Potassium 05/18/17 Medical Decision Making ED Course/Re-evaluation: The patient was evaluated and managed by the physician's ambulance assistant. My cosignature indicates that I reviewed the chart and I agree with the findings and plan of care as documented. I am the secondary supervising physician. ( Katty Faustin) 0830: M1 hold placed due to paranoia, suicidal thoughts and patient is eminent danger to himself. Recent labs 05/18/17 reviewed; labs and urine drug screen ordered. Patient is currently calm and cooperative. No signs of alcohol withdrawal seizures/delirium. 1045: Labs and UDS reviewed; positive for benzodiazepine. Medically clear for mental health evaluation. 1100: Notified by [facility] that they do not feel comfortable evaluating patient despite negative methamphetamine urine drug screen. They report that patient has a history of methamphetamine use. They will come to see patient at 1900. 1340: notified by nurse that patient is trying to leave the emergency room. Took shoes and socks off and was stretching. Last visit oral Zyprexa had prolonged affect of sedation on the patient delay mental health evaluation. IM Haldol 5 mg ordered. 1650: End of Shift. Signed over to Dr. Posadas pending mental health evaluation at 1900. This patient was seen under the supervision of my secondary supervising physician. I evaluated care for this patient independently. Discussed this patient with Dr. Faustin who did not see the patient. (Debi Krishnan) I took over care of this patient primarily at 5:00 p.m.. The patient is waiting for behavioral health evaluation at 7:00 p.m.. History of anxiety, methamphetamine abuse and suicidal ideation. 9:30 p.m., the patient has been seen and evaluated by Behavioral Health. The patient is not suicidal. Behavioral Health is very familiar with this patient. They have cleared the patient for discharge. The patient's hold has been lifted. Patient has resources for follow-up. Return to emergency department precautions discussed with him. All of his questions were answered. He was discharged in good condition. (Bryant Posadas) Differential Diagnosis: Differential diagnosis includes but is not limited to functional in situational depression, alcohol abuse, paranoia, schizoaffective disorder, methamphetamine use. (Debi Krishnan) - Data Points Laboratory Results: Laboratory Results 05/21/17 08:40 05/21/17 08:40 05/21/17 10:20 Urine Opiates Screen NEGATIVE (NEGATIVE) Urine Barbiturates NEGATIVE (NEGATIVE) Ur Phencyclidine Scrn NEGATIVE (NEGATIVE) Ur Amphetamine Screen NEGATIVE (NEGATIVE) U Benzodiazepines Scrn NON-NEGATIVE H (NEGATIVE) Urine Cocaine Screen NEGATIVE (NEGATIVE) U Marijuana (THC) Screen NEGATIVE (NEGATIVE) Medications Given: Discontinued Medications Haloperidol Lactate (Haldol Injection) 5 mg IM EDNOW ONE Stop: 05/21/17 13:43 Last Admin: 05/21/17 14:00 Dose: 5 mg Departure - Departure Disposition: Home, Routine, Self-Care Clinical Impression: Passive suicidal ideations, Polysubstance abuse Condition: Good Instructions: Polysubstance Abuse (ED) Additional Instructions: Read and follow provided instructions. Follow-up with your primary care physician in 1-2 days for re-evaluation and to discuss detox program options. Follow-up as instructed by Behavioral Health. Return to the emergency department for worsening symptoms or other serious concerns. Referrals: NONE *[facility],. [Primary Care Provider] - As per Instructions [facility],. [Clinic] - As per Instructions
[2017-05-21 09:50] LABS: PLATELET COUNT 321 10^3/uL (150-400)
[2017-05-21] MEDS ORDERED: HALOPERIDOL LACT 5 MG/ML INJ IM ONE (13:42)
[2017-05-21 22:27] VITALS: BP 127/73
== END 2017-05-21 22:26 | disposition home or self-care (01) ==
LOC: EDUNIT#
DX: R45.851 Suicidal ideations (principal); F19.10 Other psychoactive substance abuse, uncomplicated; I10 Essential (primary) hypertension; F17.200 Nicotine dependence, unspecified, uncomplicated
CPT/HCPCS: 80305; G0480; J1630

== ENCOUNTER 2017-05-23 19:56 | Emergency (ER) | payer MEDICAID ==
--- NOTE | 2017-05-23 20:01 | EDPHY ---
H & P Source: Patient, Old records Exam Limitations: Clinical condition - Personal History Tetanus Vaccine Date: 2015 - Medical/Surgical History Hx Asthma: No Hx Chronic Respiratory Disease: No Hx Diabetes: No Hx Cardiac Disease: No Hx Renal Disease: No Hx Cirrhosis: No Hx Alcoholism: Yes Hx HIV/AIDS: No Hx Splenectomy or Spleen Trauma: No Other PMH: PMHx: chronic pancreatitis, uncontrolled htn, anxiety, alcohol abuse. PSHx: denies - Social History Smoking Status: Current every day smoker Time Seen by Provider: 05/23/17 20:00 HPI/ROS: HPI: This is a 27-year-old male who presents with Chief Complaint: Suicidal ideation, hearing voices Location: psych Quality: Suicidal ideation, hearing voices Duration: 1-3 hours prior to arrival Signs and Symptoms: + auditory hallucinations, no visual hallucinations, + suicidal ideation with no plan, no homicidal ideation, + paranoid Timing: Acute on chronic Severity: [id number] Context: Patient is well-known to the emergency room and to this provider voluntarily presents himself with complaints of suicidal ideation and hearing voices. admits to snorting methamphetamine 30 min to 1 hr prior to arrival. He complains of hearing voices for the last several hours. He reports that he is extremely paranoid about the situation and that he believes that people are following him. He is concerned as he has never heard voices before. He thinks that he may be becoming delusional. He reports that he fears for his safety. Patient does not have a plan on how he wants to end his life. Modifying Factors: None Comment: ROS: see HPI Constitutional: No fever, no chills, no weight loss Eyes: No blurred vision Respiratory: No shortness of breath, no cough Cardiovascular: No chest pain Gastrointestinal: No nausea, no vomiting, no diarrhea Genitourinary: No dysuria Extremities: No myalgias Neurologic: No weakness, no numbness Skin: No rashes Hematologic: No bruising, no bleeding MEDICAL/SURGICAL/SOCIAL HISTORY: Medical history: chronic pancreatitis, uncontrolled htn, anxiety, alcohol abuse Surgical history: Denies Social history: Homeless. CONSTITUTIONAL: Well-developed well-nourished adult white male, calm and cooperative at this time, awake and alert, no obvious distress HEENT: Atraumatic and normocephalic, PERRL, EOMI. Tympanic membranes clear. Oropharynx clear, no exudate and moist pink mucosa. Airway patent. No lymphadenopathy. No meningismus. Cardiovascular: Normal S1/S2, regular rate, regular rhythm, without murmur rub or gallop. PULMONARY/CHEST: Symmetrical and nontender. Clear to auscultation bilaterally. Good air movement. No accessory muscle usage. ABDOMEN: Soft, nondistended, nontender, no rebound, no guarding, no peritoneal signs, no masses or organomegaly. No CVAT. EXTREMITIES: 2/2 pulses, strength 5/5, no deformities, no clubbing, no cyanosis or edema. NEUROLOGICAL: no focal neuro deficits. GCS 15. SKIN: Warm and dry, open blisters noted to both heels; no erythema. no rash. Good capillary refill. PSYCH: Good eye contact, no flight of ideas, + tangential disorganized thought process, fair insight and judgment, + auditory hallucinations, no visual hallucinations, + suicidal ideation with no plan, no homicidal ideation, + paranoid (Debi Krishnan) Constitutional: Initial Vital Signs Temperature (C) 36.8 C 05/23/17 20:00 Heart Rate 96 05/23/17 20:00 Respiratory Rate 20 05/23/17 20:00 Blood Pressure 129/95 H 05/23/17 20:00 O2 Sat (%) 95 05/23/17 20:00 O2 Delivery Mode Room Air Allergies/Adverse Reactions: tramadol Allergy (Verified 05/21/17 08:13) Home Medications: Medication Instructions Recorded Citalopram 05/07/17 Penicillin V Potassium 05/18/17 Medical Decision Making ED Course/Re-evaluation: 1999: Placed on Detainer as I believe his current complaints are related to his drug use and not gravely disabled. Labs and UDS ordered. Given Zyprexa 10 mg. 0: Labs and UDS reviewed; UDS positive for benzodiazepine. Mild leukocytosis noted; suspect reactive. Afebrile. 0005: End Of shift. Signed over to Dr. Ortiz. Re-evaluate patient once more sober. Suspect patient will be discharged home. This patient was seen under the supervision of my secondary supervising physician. I evaluated care for this patient independently. Discussed this patient with Dr. Ortiz. (Debi Krishnan) 0500: Patient has been sleeping. No acute events overnight. Here with suicide ideation, received Zyprexa earlier. Chronic methamphetamine use. Not on M1 hold. 0700: Patient will need re-evaluation this morning. Signed over to Dr. Roberson. (Fransico Ortiz) I did not see this patient while he was in the emergency department. However his care was discussed with the PA while the patient was in the department. I agree with treatment plan and management (Marlon Aguero) Differential Diagnosis: Differential diagnosis includes but is not limited to functional in situational depression, methamphetamine use, intoxication, delusional, schizoaffective disorder. (Debi Krishnan) Other Provider: Care assumed at 6:45 a.m., history of suicidal ideation and hearing voices after methamphetamine abuse. Plan for re-evaluation this morning by psychiatry. Previous 05/18 and 05/21 ED visits this past week. 1141: Recommendation of mental health central office associate to discharge the patient, does not appear to be a danger to self or others or gravely disabled at this time. Is not currently on a mental health hold. Advised to stop methamphetamine abuse. (Redd Roberson) - Data Points Laboratory Results: Laboratory Results 05/23/17 20:28 05/23/17 20:28 Medications Given: Discontinued Medications Olanzapine (Zyprexa Zydis) 10 mg PO EDNOW ONE Stop: 05/23/17 20:05 Last Admin: 05/23/17 20:20 Dose: 10 mg Departure - Departure Disposition: Home, Routine, Self-Care Clinical Impression: Paranoia, Methamphetamine abuse Instructions: Generalized Anxiety Disorder (ED), Methamphetamine Abuse (ED) Referrals: [facility],. [Clinic] - As per Instructions
[2017-05-23] MEDS ORDERED: OLANZapine DISINTEGR 10 MG TAB PO ONE (20:04)
[2017-05-23 20:36] LABS: PLATELET COUNT 301 10^3/uL (150-400)
[2017-05-24 12:14] VITALS: BP 125/82
== END 2017-05-24 12:13 | disposition home or self-care (01) ==
LOC: EDUNIT#
DX: F15.10 Other stimulant abuse, uncomplicated (principal); F22 Delusional disorders; F17.200 Nicotine dependence, unspecified, uncomplicated
CPT/HCPCS: 80305; G0480

== ENCOUNTER 2017-06-18 19:51 | Emergency (ER) | payer MEDICAID ==
[2017-06-18 20:00] VITALS: BP 144/94
[2017-06-18] MEDS ORDERED: CEPHALEXIN 500MG PREPACK#4 BTL TAKEHOME ONE (20:11)
--- NOTE | 2017-06-18 20:11 | EDPHY ---
H & P Stated Complaint: SOAKED FEET/WORRIED ABOUT BLISTERS X 1 WEEK Time Seen by Provider: 06/18/17 20:06 HPI/ROS: HPI: This is a 27-year-old male who presents with Chief Complaint: SOAKED FEET/WORRIED ABOUT BLISTERS X 1 WEEK Location: Bottom of feet Quality: Wet Duration: 1 week Signs and Symptoms: No bleeding, no radiation, no numbness, no weakness, no tingling, no incontinence, no decreased range of motion, no swelling, no pain, no fever Timing: Acute Severity: Mild Context: Patient reports that he stays at the nursing home and was walking in the rain approximately 1 week ago in his shoes. He reports that his ft became wit and blistery. He reports that he has opportunity to dry she was out at night and take a socks off to dry out as well. Tetanus booster 2016. No history of diabetes mellitus. Denies any pain with ambulation or weight-bearing/weakness/ paresthesias/numbness. Patient has not tried any [id number] medication. Modifying Factors: None Comment: ROS: see HPI Constitutional: No fever, no chills, no weight loss Eyes: No blurred vision Respiratory: No shortness of breath, no cough Cardiovascular: No chest pain Gastrointestinal: No nausea, no vomiting no diarrhea Genitourinary: No dysuria Extremities: No myalgias Neurologic: No weakness, no numbness Skin: No rashes Hematologic: No bruising, no bleeding MEDICAL/SURGICAL/SOCIAL HISTORY: Medical history: chronic pancreatitis, uncontrolled hypertension, anxiety, alcohol abuse Surgical history: Denies Social history: Homeless. CONSTITUTIONAL: awake and alert, no obvious distress HEENT: Atraumatic and normocephalic, PERRL, EOMI. Nares patent; no rhinorrhea; no nasal mucosal edema. Tympanic membranes clear. Oropharynx clear, no exudate and moist pink mucosa. Airway patent. No lymphadenopathy. No meningismus. Cardiovascular: Normal S1/S2, tachycardia, regular rhythm, without murmur rub or gallop. PULMONARY/CHEST: Symmetrical and nontender. Clear to auscultation bilaterally. Good air movement. No accessory muscle usage. ABDOMEN: Soft, nondistended, nontender, no rebound, no guarding, no peritoneal signs, no masses or organomegaly. No CVAT. EXTREMITIES: 2/2 pulses, strength 5/5, bottom of feet show prune to skin; no skin breakdown; no ulceration; no blisters; no redness; no warmth; no drainage. no deformities, no clubbing, no cyanosis or edema. NEUROLOGICAL: no focal neuro deficits. GCS 15. SKIN: Warm and dry, no erythema. no rash. Good capillary refill. Source: Patient Exam Limitations: No limitations - Personal History Current Tetanus Diphtheria and Acellular Pertussis (TDAP): Yes Tetanus Vaccine Date: 2015 - Medical/Surgical History Hx Asthma: No Hx Chronic Respiratory Disease: No Hx Diabetes: No Hx Cardiac Disease: No Hx Renal Disease: No Hx Cirrhosis: No Hx Alcoholism: Yes Hx HIV/AIDS: No Hx Splenectomy or Spleen Trauma: No Other PMH: PMHx: chronic pancreatitis, uncontrolled htn, anxiety, alcohol abuse. PSHx: denies - Social History Smoking Status: Heavy smoker Constitutional: Initial Vital Signs Temperature (C) 36.6 C 06/18/17 19:58 Heart Rate 110 H 06/18/17 19:58 Respiratory Rate 16 06/18/17 19:58 Blood Pressure 144/94 H 06/18/17 19:58 O2 Sat (%) 98 06/18/17 19:58 O2 Delivery Mode Room Air Allergies/Adverse Reactions: tramadol Allergy (Verified 05/21/17 08:13) Home Medications: Medication Instructions Recorded Celexa 06/18/17 Cephalexin [Keflex (*)] 500 mg PO TID #21 cap 06/18/17 Hydroxyzine HCl 06/18/17 Miconazole Nitrate [Lotrimin AF] 1 ivanna TP BID #90 g 06/18/17 Medical Decision Making ED Course/Re-evaluation: Vital signs reviewed upon arrival; mild tachycardia noted. Skin has no clear signs of cellulitis/ulceration/neurovascular compromise/ tenting of skin/compartment syndrome/extremities and joints examined above and below area of concern and are neurovascularly intact. Feet cleaned with mild soap and water; 2 x 2 gauze applied between the toes; given Keflex and prescription for same as well as antifungal foot powder. Advised to keep his feet as dry as possible This patient was seen under the supervision of my secondary supervising physician. I evaluated care for this patient independently. Discussed this patient with Dr. Posadas who did not see the patient. Differential Diagnosis: Differential diagnosis includes but is not limited to candidiasis, cellulitis, skin ulceration. Departure - Departure Disposition: Home, Routine, Self-Care Clinical Impression: Maceration of skin Condition: Good Instructions: Athlete's Foot (ED), Miconazole (On the skin) Additional Instructions: Please keep feet as dry as possible. Do not pop your blisters. Take Keflex 3 times a day x 7 days. Apply [id number] anti-fungal foot powder to prevent yeast infection. Referrals: [facility],. [Clinic] - 5-7 days, if not improved Prescriptions: Cephalexin [Keflex (*)] 500 mg PO TID #21 cap Miconazole Nitrate [Lotrimin AF] 1 ivanna TP BID #90 g
== END 2017-06-18 20:24 | disposition home or self-care (01) ==
DX: R23.8 Other skin changes (principal); F17.200 Nicotine dependence, unspecified, uncomplicated; I10 Essential (primary) hypertension

== ENCOUNTER 2017-11-05 11:01 | Emergency (ER) | payer MEDICAID ==
--- NOTE | 2017-11-05 11:31 | EDPHY ---
H & P Time Seen by Provider: 11/05/17 11:31 HPI/ROS: Chief complaint. Headache HPI. 19-year-old male presents emergency department with new onset headaches over the past 3-4 months. Normally the last 1-2 days. This 1 has been persistent for approximately 1 week. Gradual onset. No recent head injury but he had a concussion 4 years ago. Discomfort is on the left confucianist area and left side of his head. Feels is eyes twitching. At onset his vision gets slightly blurry and he gets nauseated and then headache comes on. Mom has migraines. Otherwise no chest discomfort or trouble breathing. No abdominal pain. Denies focal weakness or paresthesias ROS 10 systems were reviewed and negative with the exception of the elements mentioned in the history of present illness Past Medical/Surgical History: Chronic pancreatitis, hypertension, alcoholism, anxiety Social History: Single, daily smoker, no alcohol Smoking Status: Heavy smoker Physical Exam: General Appearance: Alert well-developed male mild distress vital signs are stable Eyes: Pupils equal and round no pallor or injection. ENT, Mouth: Mucous membranes are moist. Respiratory: There are no retractions, lungs are clear to auscultation. Cardiovascular: Regular rate and rhythm. Gastrointestinal: Abdomen is soft and nontender, no masses, bowel sounds normal. Neurological: Awake and alert, sensory and motor exams grossly normal. Skin: Warm and dry, no rashes. Musculoskeletal: Neck is supple nontender. Extremities symmetrical, full range of motion. Psychiatric: Patient is oriented X 3, there is no agitation. Constitutional: Initial Vital Signs Temperature (C) 36.7 C 11/05/17 11:05 Heart Rate 100 11/05/17 11:05 Respiratory Rate 17 11/05/17 11:05 Blood Pressure 135/97 H 11/05/17 11:05 O2 Sat (%) 99 11/05/17 11:05 O2 Delivery Mode Room Air Allergies/Adverse Reactions: tramadol Allergy (Verified 11/05/17 11:04) Home Medications: Medication Instructions Recorded Hydroxyzine HCl 06/18/17 SUMAtriptan [Imitrex Nasal 20 mg 20 mg NASAL ONCE PRN #1 spray 11/05/17 [place] (RX)] Seroquel 11/05/17 Medical Decision Making Procedures: Imitrex given subcutaneously - Data Points Medications Given: Discontinued Medications Sumatriptan Succinate (Imitrex Sc Injection) 6 mg SC EDNOW ONE Stop: 11/05/17 11:42 Last Admin: 11/05/17 11:50 Dose: 6 mg Departure - Departure Disposition: Home, Routine, Self-Care Clinical Impression: Migraine headache with aura Qualifiers: Status migrainosus presence: without status migrainosus Intractability: not intractable Qualified Code(s): G43.109 - Migraine with aura, not intractable, without status migrainosus Condition: Good Instructions: Migraine Headache (ED) Additional Instructions: Intranasal Imitrex spray. Use at onset and then may repeat in 2 hr if necessary. Maximum is 2 sprays in 24 hr Return for worsening symptoms Referrals: NONE *PRIMARY CARE P,. [Primary Care Provider] - As per Instructions [facility] [Outside] - 5-7 days, call for appt. Prescriptions: SUMAtriptan [Imitrex Nasal 20 mg [place] (RX)] 20 mg NASAL ONCE PRN #1 spray PRN Reason: Headache, Migrane
[2017-11-05] MEDS ORDERED: SUMAtriptan 6 MG/0.5 ML VIAL SC ONE (11:41)
[2017-11-05 13:51] VITALS: BP 128/77
--- NOTE | 2017-11-07 11:10 | ASMTCMCOM ---
CM Note CM Note Notes: Followed up with [facility] to see if they could reach out to patient in the community and assist w/follow-up but pt is not in their system. If pt returns to the ED, please assist w/getting pt an appt at and offer a [facility] pamphlet and/or referral CM available for further assistance if needed. Date Signed: 11/07/2017 11:09 AM Electronically Signed By:Alda Giordano RN
== END 2017-11-05 13:52 | disposition home or self-care (01) ==
DX: G43.109 Migraine with aura, not intractable, without status migrainosus (principal); I10 Essential (primary) hypertension; F17.210 Nicotine dependence, cigarettes, uncomplicated
CPT/HCPCS: J3030

== ENCOUNTER 2017-11-12 17:55 | Emergency (ER) | payer MEDICAID ==
--- NOTE | 2017-11-12 18:12 | EDPHY ---
H & P Stated Complaint: r lower wisdom tooth removed, swollen and painful Time Seen by Provider: 11/12/17 18:12 - Personal History Current Tetanus Diphtheria and Acellular Pertussis (TDAP): Yes Tetanus Vaccine Date: 2015 - Medical/Surgical History Hx Asthma: No Hx Chronic Respiratory Disease: No Hx Diabetes: No Hx Cardiac Disease: No Hx Renal Disease: No Hx Cirrhosis: No Hx Alcoholism: Yes Hx HIV/AIDS: No Hx Splenectomy or Spleen Trauma: No Other PMH: PMHx: chronic pancreatitis, htn, anxiety, alcohol abuse. PSHx: denies - Social History Smoking Status: Heavy smoker Constitutional: Initial Vital Signs Temperature (C) 37.7 C 11/12/17 18:02 Heart Rate 117 H 11/12/17 18:02 Respiratory Rate 18 11/12/17 18:02 Blood Pressure 141/88 H 11/12/17 18:02 O2 Sat (%) 97 11/12/17 18:02 Allergies/Adverse Reactions: tramadol Allergy (Verified 11/05/17 11:04) Home Medications: Medication Instructions Recorded SUMAtriptan [Imitrex Nasal 20 mg 20 mg NASAL ONCE PRN #1 spray 11/05/17 [place] (RX)] Cephalexin [Keflex (RX)] 500 mg PO TID #30 cap 11/12/17 Ibuprofen [Motrin] 800 mg PO Q8 #20 tab 11/12/17 Vicodin 5-300 mg Tablet 11/12/17 Medical Decision Making - Diagnostics Imaging Results: Imaging Impressions Face CT 11/12/17 18:28 Impression: 1. Defect related to wisdom tooth extraction right posterior mandible with gas extending into the adjacent buccal soft tissues and anterior to the masseter muscle without focal abscess. 2. Moderate soft tissue swelling right lower face along the right side of the mandible with haziness of the subcutaneous fat and thickening of the masseter muscle as well as platysmas muscle on the right without focal abscess. Findings discussed with Ace Merino MD at 19:45 hour, 11/12/2017. Imaging: Discussed imaging studies w/ house calls nurse practitioner Radiologist, I viewed and interpreted images myself ED Course/Re-evaluation: CHIEF COMPLAINT: Right facial swelling HISTORY OF PRESENT ILLNESS: Healthy 27-year-old who had a wisdom tooth pulled at [facility] yesterday. He describes the procedure is being complicated and the tooth was wrapped around the nerve in the head to do extensive extraction and then sutured it after the extraction. This morning he woke up in the face on the right started swelling starting the lower jaw. It has gotten worse throughout the day. Patient describes significant pain. Patient denies systemic illness. REVIEW OF SYSTEMS: A comprehensive 10 system review of systems is otherwise negative aside from elements mentioned in the history of present illness and medical decision making. PHYSICAL EXAM: HR, BP, O2 Sat, RR. Temp noted General Appearance: Alert, well hydrated, appropriate, and non-toxic appearing. Head: Atraumatic without scalp tenderness or obvious injury Eyes: Pupils equal, round, reactive to light and accommodation, EOMI, no trauma , no injection. Ears: Clear bilaterally, no perforation, normal landmarks Nose: Atraumatic, no rhinorrhea, clear. Throat: Some mild erythema in a lot of swelling but an intact suture line that is somewhat red along the wisdom tooth. Significant facial swelling. There is no erythema or exudates, no lesions, normal tonsils, mucus membranes moist. Neck: Supple, 2+ carotid upstroke, nontender, no lymphadenopathy. Respiratory: No retractions, no distress, no wheezes, and no accessory muscle use. Lungs are clear to auscultation bilaterally. Cardiovascular: Regular rate and rhythm, no murmurs, rubs, or gallops. Bilateral carotid, radial, dorsalis pedis, and posterior tibial pulses intact. Good capillary refill all extremities. Gastrointestinal: Abdomen is soft, nontender, non-distended, no masses, no rebound, no guarding, no peritoneal signs. Musculoskeletal: Normal active ROM of all extremities, atraumatic. Neurological: Alert, appropriate, and interactive. The patient has normal DTRs and non-focal cranial nerves, motor, sensory, and cerebellar exam. Skin: No rashes, good turgor, no nodules on palpation. Past medical history: None Past surgical history: [place] tooth extraction yesterday complicated Family history: Noncontributory Social history: Single, employed, does not abuse tobacco drugs or alcohol DIAGNOSTICS/PROCEDURES/CRITICAL CARE TIME: Study: CT of the maxillofacial with contrast rule out abscess verses cellulitis Indication: Right facial swelling status post dental extraction Results: CT scan of the face was obtained. The results of the study are soft tissue swelling without an abscess. DIFFERENTIAL DIAGNOSIS: Includes but is not limited to: Normal postoperative swelling, cellulitis, abscess, retained foreign body MEDICAL DECISION MAKING: This patient has significant progressive right facial swelling starting his lower jaw after was not tooth extraction that was quite complicated yesterday morning. Apparently the extraction took much longer, they had to use a bunch of additional numbing medicine, they also had to try and extract the was done tooth from a nerve root. Patient has extensive swelling this morning and worsening pain. No systemic illness. 600 mg of clindamycin given IV along with 10 of Decadron. Patient is getting a CT with IV contrast to rule out abscess. 1944: I consulted with Dr. Fernandez, radiologist, who reports there is only soft tissue swelling without an abscess. 1958: Reassessed patient and discussed laboratory and imaging findings. I have advised him to take Clindamycin and Motrin. I have also advised him to follow up with his dental surgeon tomorrow. Return precautions provided patient is comfortable with this plan. - Data Points Laboratory Results: Laboratory Results 11/12/17 18:44 11/12/17 18:44 11/12/17 11/12/17 18:44 18:44 WBC 11.17 10^3/uL H 10^3/uL (3.80-9.50) RBC 4.52 10^6/uL 10^6/uL (4.40-6.38) Hgb 13.8 g/dL g/dL (13.7-17.5) Hct 40.2 % % (40.0-51.0) MCV 88.9 fL fL (81.5-99.8) MCH 30.5 pg pg (27.9-34.1) MCHC 34.3 g/dL g/dL (32.4-36.7) RDW 13.0 % % (11.5-15.2) Plt Count 258 10^3/uL 10^3/uL (150-400) MPV 9.1 fL fL (8.7-11.7) Neut % (Auto) 76.9 % H % (39.3-74.2) Lymph % (Auto) 14.6 % L % (15.0-45.0) Morgan % (Auto) 7.5 % % (4.5-13.0) Eos % (Auto) 0.5 % L % (0.6-7.6) Baso % (Auto) 0.3 % % (0.3-1.7) Nucleat RBC Rel Count 0.0 % % (0.0-0.2) Absolute Neuts (auto) 8.59 10^3/uL H 10^3/uL (1.70-6.50) Absolute Lymphs (auto) 1.63 10^3/uL 10^3/uL (1.00-3.00) Absolute Monos (auto) 0.84 10^3/uL H 10^3/uL (0.30-0.80) Absolute Eos (auto) 0.06 10^3/uL 10^3/uL (0.03-0.40) Absolute Basos (auto) 0.03 10^3/uL 10^3/uL (0.02-0.10) Absolute Nucleated RBC 0.00 10^3/uL 10^3/uL (0-0.01) Immature Gran % 0.2 % % (0.0-1.1) Immature Gran # 0.02 10^3/uL 10^3/uL (0.00-0.10) Sodium 137 mEq/L mEq/L (135-145) Potassium 3.9 mEq/L mEq/L (3.3-5.0) Chloride 101 mEq/L mEq/L (97-110) Carbon Dioxide 29 mEq/l mEq/l (22-31) Anion Gap 7 mEq/L L mEq/L (8-16) BUN 15 mg/dL mg/dL (7-23) Creatinine 0.9 mg/dL mg/dL (0.7-1.3) Estimated GFR > 60 Glucose 89 mg/dL mg/dL (70-100) Calcium 8.7 mg/dL mg/dL (8.5-10.4) Medications Given: Discontinued Medications Dexamethasone (Decadron Injection) 10 mg IVP EDNOW ONE Stop: 11/12/17 18:29 Last Admin: 11/12/17 19:02 Dose: 10 mg Hydromorphone HCl (Dilaudid) 1 mg IVP EDNOW ONE Stop: 11/12/17 18:29 Last Admin: 11/12/17 19:00 Dose: 1 mg Clindamycin Phosphate/Dextrose (Cleocin 600 Mg (Premix)) 50 mls @ 100 mls/hr IV EDNOW ONE PRN Reason: Protocol Stop: 11/12/17 18:56 Last Admin: 11/12/17 19:00 Dose: 50 mls Sodium Chloride (Ns) 1,000 mls @ 0 mls/hr IV EDNOW ONE; Wide Open PRN Reason: Protocol Stop: 11/12/17 18:29 Last Admin: 11/12/17 18:56 Dose: 1,000 mls Ketorolac Tromethamine (Toradol) 30 mg IVP EDNOW ONE Stop: 11/12/17 18:29 Last Admin: 11/12/17 18:59 Dose: 30 mg Ondansetron HCl (Zofran) 4 mg IVP EDNOW ONE Stop: 11/12/17 18:29 Last Admin: 11/12/17 18:57 Dose: 4 mg Departure - Departure Disposition: Home, Routine, Self-Care Clinical Impression: Soft tissue swelling, Facial swelling Condition: Good Instructions: Toothache (ED) Additional Instructions: 1. Take Keflex as prescribed. 2. Follow up with your dental surgeon tomorrow for a recheck. 3. You do not have a facial abscess. 4. Take Ibuprofen for pain. 5. Return to the ED for fever, difficulty swallowing, increase in swelling or other concerns. Referrals: [facility] [Outside] - As per Instructions Prescriptions: Cephalexin [Keflex (RX)] 500 mg PO TID #30 cap Ibuprofen [Motrin] 800 mg PO Q8 #20 tab
[2017-11-12] MEDS ORDERED: CLINDAMYCIN 600 MG/DEXTROSE 50 ML IV ONE (18:27)
[2017-11-12] MEDS ORDERED: ONDANSETRON 4 MG/2 ML VIAL IVP ONE (18:28)
[2017-11-12] MEDS ORDERED: NS 1,000 ML IV ONE (18:28)
[2017-11-12] MEDS ORDERED: KETOROLAC 30 MG/1 ML SDV IVP ONE (18:28)
[2017-11-12] MEDS ORDERED: DEXAMETHASONE 10 MG/ML VIAL IVP ONE (18:28)
[2017-11-12] MEDS ORDERED: HYDROmorphONE/DILAUDID 2 MG/ML INJ IVP ONE (18:28)
[2017-11-12] MEDS ORDERED: IOPAMIDOL (ISOVUE-300) 100 ML BTL ONE (18:34)
[2017-11-12] MEDS ORDERED: DEXAMETHASONE 4 MG/ML VIAL ONE (18:53)
[2017-11-12 18:56] LABS: PLATELET COUNT 258 10^3/uL (150-400)
[2017-11-12 20:13] VITALS: BP 144/82
== END 2017-11-12 20:13 | disposition home or self-care (01) ==
DX: R22.0 Localized swelling, mass and lump, head (principal); K08.89 Other specified disorders of teeth and supporting structures; F17.200 Nicotine dependence, unspecified, uncomplicated
CPT/HCPCS: 96365; J1100; J1170; J1885; J2405; Q9967

== ENCOUNTER 2017-11-15 08:46 | Emergency (ER) | payer MEDICAID ==
--- NOTE | 2017-11-15 09:20 | EDPHY ---
H & P Stated Complaint: Right lower gum swelling. Here Monday but pain getting worse. - Personal History Current Tetanus Diphtheria and Acellular Pertussis (TDAP): Yes Tetanus Vaccine Date: 2015 - Medical/Surgical History Hx Asthma: No Hx Chronic Respiratory Disease: No Hx Diabetes: No Hx Cardiac Disease: No Hx Renal Disease: No Hx Cirrhosis: No Hx Alcoholism: Yes Hx HIV/AIDS: No Hx Splenectomy or Spleen Trauma: No Other PMH: PMHx: chronic pancreatitis, htn, anxiety, alcohol abuse. PSHx: denies - Social History Smoking Status: Heavy smoker Time Seen by Provider: 11/15/17 09:07 HPI/ROS: CHIEF COMPLAINT: Continued facial swelling HISTORY OF PRESENT ILLNESS: 27-year-old immunocompetent male postop day 4 post tooth number 30 to extraction at [facility] was seen in the ER the next day for complaints of facial swelling. At that time he had a facial CT showing no abscess, findings consistent with post extraction gas extending to the adjacent be you cool soft tissues. He was instructed to follow up with [facility] however he states that he does not have money to pay the co-pay or for transportation. He comes to the ER complaining of continued pain, continued facial swelling. He denies: Fever, chills, levels nausea, vomiting, change in voice REVIEW OF SYSTEMS: 10 systems reviewed and negative with the exception of the elements mentioned in the history of present illness PAST MEDICAL & SURGICAL HISTORY: No pertinent medical or surgical history SOCIAL HISTORY: No illicit drug use PHYSICAL EXAM (Prior to examination, patient consented to physical exam, hands were washed and my usual and customary physical exam procedures followed) 1) GENERAL: Well-developed, well-nourished, alert and oriented. Appears uncomfortable, appears nontoxic. 2) HEAD: Normocephalic, atraumatic 3) HEENT: Pupils equal, round, reactive to light bilaterally. Sclera anicteric. Right facial swelling noted, tender with no overlying skin changes. No crepitus. Floor of mouth and sublingual spaces are soft. No evidence of Nicolás's angina Intraoral examination reveals tenderness to palpation of the buccal mucosa on the right side. There is no foul smell. Minimal amount of trismus is present.. Moist Mucous membranes. Ears bilaterally with normal tympanic membranes. 4) NECK: Full range of motion, no meningeal signs. Submental and submandibular spaces are soft with no induration, no tenderness, no crepitus. No adenopathy 5) LUNGS: Clear auscultation bilaterally, no wheezes, no rhonchi, no retractions. 6) HEART: Regular rate and rhythm, no murmur, no heave, no gallop. 7) ABDOMEN: No guarding, no rebound, no focal tenderness, negative McBurney's, negative Willett's, negative Rovsing's, negative peritoneal sign, 8) MUSCULOSKELETAL: Moving all extremities, no focal areas of tenderness, no obvious trauma. No peripheral edema or discoloration. 9) BACK: No CVA tenderness, no midline vertebral tenderness, no fluctuance, no step-off, no obvious trauma, no visual or palpable abnormality. 10) SKIN: No rash, no petechiae. 11) Psychiatric: Patient is oriented X 3, there is no agitation. DIFFERENTIAL DIAGNOSIS: In no particular order including but not limited to post extraction pain, Ludwigs Angina, facial abscess (Nai,Ruthie Jasmin) Constitutional: Initial Vital Signs Temperature (C) 36.6 C 11/15/17 08:54 Heart Rate 109 H 11/15/17 08:54 Respiratory Rate 18 11/15/17 08:54 Blood Pressure 141/97 H 11/15/17 08:54 O2 Sat (%) 98 11/15/17 08:54 O2 Delivery Mode Room Air Allergies/Adverse Reactions: tramadol Allergy (Verified 11/05/17 11:04) Home Medications: Medication Instructions Recorded Cephalexin [Keflex (RX)] 500 mg PO TID #30 cap 11/12/17 Medical Decision Making ED Course/Re-evaluation: 9:23 a.m.: I reviewed the patient's old medical records. Patient CT imaging of his maxillofacial region 2 days ago in the emergency department showing no focal abscess. On exam I think that facial abscess is less than likely, doubt Nicolás's angina or submandibular abscess or infection. At this time will hold on repeat imaging order to decrease ionizing radiation exposure. Will consult with the counter caser. I think the patient would benefit from consultation with his dentist or oral surgeon today (Monday). I saw this patient independently based on established practice protocols. Care of patient under supervision of secondary supervising physician Dr Sanabria with whom I discussed case. 9:54 a.m.: radio station manager has consulted and spoke with patient and arranged for an appointment tomorrow , 11/16/2017 at 10:[facility] Patient is agreeable with going to this appointment. He will be discharged with a few Percocet tablets, recommend continue with his antibiotics. Definitely if he develops new or worsening symptoms to return to ER. He feels comfortable with this plan. All questions and concerns addressed by myself. (Ruthie Trimble) - Data Points Medications Given: Discontinued Medications Dexamethasone (Decadron Injection) 10 mg PO EDNOW ONE Stop: 11/15/17 09:25 Last Admin: 11/15/17 09:56 Dose: Not Given Dexamethasone (Decadron) 10 mg PO EDNOW ONE Stop: 11/15/17 10:01 Last Admin: 11/15/17 09:55 Dose: 10 mg Oxycodone/Acetaminophen (Percocet 5/325) 1 tab PO EDNOW ONE Stop: 11/15/17 09:25 Last Admin: 11/15/17 09:42 Dose: 1 tab Oxycodone/Acetaminophen (Percocet 5/325mg Prepack#4) 1 btl TAKEHOME EDNOW ONE Stop: 11/15/17 09:59 Last Admin: 11/15/17 10:04 Dose: 1 btl Departure - Departure Disposition: Home, Routine, Self-Care Clinical Impression: Pain, dental Condition: Good Instructions: Oxycodone/Acetaminophen (By mouth), Toothache (ED) Additional Instructions: You have an appointment [facility] at [facility] [place] @ 10:45. Please be on time and bring your ID and insurance card with you. The address is: [facility] [address] [place] [id number] [place] may call and arrange a "Medicaid" cab for transportation to this appointment. Please call and arrange today if you choose to use this service and have your Medicaid number ready Referrals: You, have an appointment [facility] tomorrow 10:45 a.m. [Other] - As per Instructions
[2017-11-15] MEDS ORDERED: OXYCODONE/APAP 5/325 TAB PO ONE (09:24)
[2017-11-15] MEDS ORDERED: DEXAMETHASONE 10 MG/ML VIAL PO ONE (09:24)
[2017-11-15 09:58] VITALS: BP 152/103
[2017-11-15] MEDS ORDERED: OXYCODONE/APAP 5/325MG PREPACK#4 BTL TAKEHOME ONE (09:58)
[2017-11-15] MEDS ORDERED: DEXAMETHASONE 4 MG TAB PO ONE (10:00)
--- NOTE | 2017-11-15 10:54 | ASMTCMCOM ---
CM Note CM Note Notes: Met with patient regarding follow up dental care. Patient states that he is currently on work release from the [facility] and has just started a new job at [employer]. He has not received a pay check yet and decided not to return to [employer] due to "co pays". I have made an appointment for patient at [facility] in [place] for tomorrow at 1100 AM (10:45 check in). I encouraged patient to call this morning and arrange a Medicaid cab for this visit if transportation would be an issue. I explained that he could be followed at [facility] regardless of his ability to pay, provided he follow through with his appointments and any payment (sliding scale) he qualifies for. He is aware that [facility] will take his Medicaid and any "co pays" or out of pocket costs will be determined based on his income. I suggested that he follow up with [facility] if he has any outstanding bills and attempt to arrange a payment plan. Patient states that he has been taking his antibiotics which were prescribed after his dental extraction on Monday11/11/17 and that he is aware that it is important that he take all of this medication. Date Signed: 11/15/2017 10:53 AM Electronically Signed By:Maria G Ellsworth RN
--- NOTE | 2017-11-15 11:38 | ASMTCMCOM ---
CM Note CM Note Notes: Follow up Case Management note: Upon chart review I have contacted patient to inquire into follow up with [facility]. Patient acknowledges that he has not yet done this despite fequent referrals and encouragement. Given that he is staying at the Work Release Program at the [facility] (across the street from the [facility]), I again encouraged him to check in with P and schedule an appointment. We discussed the [facility] and I assured him he could be followed there for his PCP and mental health needs. I have contacted Jennie at [facility] and she does not have a record of patient having been to the clinic. [facility] unable to confirm as to whether patient has been in the system but "encourages" patient to follow up with scheduling an appointment. Patient confirms that the PCP, Dr. Param Coello that is listed in his chart is not a current PCP. He tells me he has not seem him in "about 4 years". I have confirmed (above) phone number for Dr. Coello but was unable to LM as the option for health care providers was not answered/no VM available. Patient again confirms that he will follow up with [facility] Date Signed: 11/15/2017 11:27 AM Electronically Signed By:Maria G Ellsworth RN
== END 2017-11-15 10:09 | disposition home or self-care (01) ==
DX: R51 Headache (principal); K08.89 Other specified disorders of teeth and supporting structures; I10 Essential (primary) hypertension; K86.1 Other chronic pancreatitis; F10.10 Alcohol abuse, uncomplicated

== ENCOUNTER 2017-12-17 21:18 | Emergency (ER) | payer MEDICAID ==
--- NOTE | 2017-12-17 21:42 | EDPHY ---
H & P Stated Complaint: chest pain, sob Time Seen by Provider: 12/17/17 21:31 HPI/ROS: CHIEF COMPLAINT: "I think I am having a silent heart attack" HISTORY OF PRESENT ILLNESS: 27-year-old male via private vehicle complaining of 1 week of recurrent left-sided chest pain which tends to happen with no definitive pattern. Tends to occur described as sharp stabbing pattern lasting 20-30 seconds, not associated with exertion. Currently asymptomatic. Atraumatic. No Syncope or near syncope. No nausea or vomiting. PRIMARY CARE PROVIDER: REVIEW OF SYSTEMS: 10 systems reviewed and negative with the exception of the elements mentioned in the history of present illness PAST MEDICAL & SURGICAL HISTORY: No pertinent medical or surgical history SOCIAL HISTORY:Positive for inhaled tobacco. Negative for cocaine FAMILY HISTORY: No family history of premature coronary artery disease or thromboembolic disorder. PHYSICAL EXAM (Prior to examination, patient consented to physical exam, hands were washed and my usual and customary physical exam procedures followed) 1) GENERAL: Well-developed, well-nourished, alert and oriented. Appears to be in no acute distress. 2) HEAD: Normocephalic, atraumatic 3) HEENT: Pupils equal, round, reactive to light bilaterally. Sclera anicteric. Nasopharynx, oropharynx, clear, no lesions. Moist mucous membranes. 4) NECK: Full range of motion, no meningeal signs. No carotid bruit 5) LUNGS: Clear auscultation bilaterally, no wheezes, no rhonchi, no retractions. Chest wall tender to palpation. No lesions no vesicles. 6) HEART: Regular rate and rhythm, no murmur, no heave, no gallop. 7) ABDOMEN: No guarding, no rebound, no focal tenderness, negative McBurney's, negative Willett's, negative Rovsing's, negative peritoneal sign, negative Homans.. 8) MUSCULOSKELETAL: Moving all extremities, no focal areas of tenderness, no obvious trauma. No peripheral edema or discoloration. 9) BACK: No CVA tenderness, no midline vertebral tenderness, no fluctuance, no step-off, no obvious trauma, no visual or palpable abnormality. 10) SKIN: No rash, no petechiae. 11) Psychiatric: Patient is oriented X 3, there is no agitation. DIFFERENTIAL DIAGNOSIS: In no particular order, including but not limited to myocardial ischemia, pulmonary embolus, chest wall pain, pleural inflammation and pulmonary infectious causes. - Personal History Tetanus Vaccine Date: 2015 - Medical/Surgical History Hx Asthma: No Hx Chronic Respiratory Disease: No Hx Diabetes: No Hx Cardiac Disease: No Hx Renal Disease: No Hx Cirrhosis: No Hx Alcoholism: Yes Hx HIV/AIDS: No Hx Splenectomy or Spleen Trauma: No Other PMH: PMHx: chronic pancreatitis, htn, anxiety, alcohol abuse. PSHx: denies - Social History Smoking Status: Heavy smoker Constitutional: Initial Vital Signs Temperature (C) 37.2 C 12/17/17 21:22 Heart Rate 101 H 12/17/17 21:22 Respiratory Rate 20 12/17/17 21:22 Blood Pressure 136/99 H 12/17/17 21:22 O2 Sat (%) 97 12/17/17 21:22 O2 Delivery Mode Room Air Allergies/Adverse Reactions: tramadol Allergy (Verified 12/17/17 21:22) Home Medications: Medication Instructions Recorded NK [No Known Home Meds] 12/17/17 Medical Decision Making - Diagnostics Imaging Results: Imaging Impressions Chest X-Ray 12/17/17 21:33 Impression: Lung hyperinflation, with no focal infiltrate. ED Course/Re-evaluation: Patient evaluated by myself. His heart rate remains in the 80s and 90s while in the room. He has a 0 point Heart pathway score. Negative troponin. I think that LA is less than likely in this patient. He is noted to have chest wall which is tender to palpation. We discussed NSAIDs for pain relief. Doubt pulmonary embolus. Patient is low risk for PE. No history of cocaine or methamphetamine abuse. I think the patient can be discharged. Usual and customary discharge precautions and instructions provided. I saw this patient independently based on established practice protocols. Care of patient under supervision of secondary supervising physician Dr Posadas with whom I discussed case. Departure - Departure Disposition: Home, Routine, Self-Care Clinical Impression: Chest pain Qualifiers: Chest pain type: unspecified Qualified Code(s): R07.9 - Chest pain, unspecified Condition: Good Instructions: Chest Pain (ED) Additional Instructions: Adult Pain & Fever Control: We recommend Acetaminophen (Tylenol) and Ibuprofen (Motrin,Advil) for pain and fever control. When fever is high or pain severe, both drugs can be used at the same time, but at different intervals. Please note the time differences. Your dose is: Acetaminophen 650mg every 4 to 6 hours Ibuprofen 600mg every 6 hours with food OR Note: do not take Acetaminophen with Hydrocodone (Vicodin, Lortab) or Oycodone (Percocet). These medications also contain Acetaminophen. No more than 3000mg of Acetaminophen should be taken in 24 hours (for an adult). Seek medical attention if you develop new or worsening chest pain, if you develop new or worsening shortness of breath, or any other symptoms that concern you. Referrals: [facility],. [Clinic] - 1-2 days without fail
[2017-12-17 22:03] VITALS: BP 149/99
--- NOTE | 2017-12-17 22:53 | CPEKG ---
Test Reason : OPEN Blood Pressure : / mmHG Vent. Rate : 090 BPM Atrial Rate : 090 BPM P-R Int : 137 ms QRS Dur : 095 ms QT Int : 349 ms P-R-T Axes : 022 064 046 degrees QTc Int : [address] elev, probable normal early repol pattern Confirmed by Bryant Posadas ([id number]) on 12/17/2017 10:52:49 PM Referred By: Confirmed By:Bryant Posadas
== END 2017-12-17 22:20 | disposition home or self-care (01) ==
DX: R07.9 Chest pain, unspecified (principal); Z72.0 Tobacco use; I10 Essential (primary) hypertension; F41.9 Anxiety disorder, unspecified; F10.10 Alcohol abuse, uncomplicated
CPT/HCPCS: 84484-PO

== ENCOUNTER 2018-02-26 22:52 | Emergency (ER) | payer MEDICAID ==
--- NOTE | 2018-02-26 23:02 | EDPHY ---
H & P Stated Complaint: Migraine since today Time Seen by Provider: 02/26/18 23:02 HPI/ROS: HPI CHIEF COMPLAINT: Migraine headache. HISTORY OF PRESENT ILLNESS: 27-year-old male, history of migraine headaches, chronic pancreatitis and history of alcohol abuse, presents to the emergency room with a migraine headache. Patient reports that he states that this exactly like his previous headaches it is bitemporal throbbing in nature. It has been present since early this morning. He missed work today because of it. States he has headaches multiple times per week. However this 1 is more severe however similar previous migraine headaches. He normally takes sumatriptan intranasally but is out of the medication. He endorses nausea, denies vomiting, denies chest pain or shortness of breath, denies neck pain or neck stiffness, denies fever. States this feels very similar to his previous migraines. Past Medical History: Chronic pancreatitis, history of alcohol abuse, migraine headache Past Surgical History: Denies recent surgery Social History: Denies drugs alcohol tobacco. Family History: Noncontributory ROS REVIEW OF SYSTEMS: 10 Systems were reviewed and negative with the exception of the elements mentioned in the history of present illness. Exam Constitutional appears well nontoxic no acute distress triage nursing summary reviewed, vital signs reviewed, awake/alert. Vital signs are stable. Eyes normal conjunctivae and sclera, EOMI, PERRLA. HENT normal inspection, atraumatic, moist mucus membranes, no epistaxis, neck supple/ no meningismus, no raccoon eyes. Respiratory clear to auscultation bilaterally, normal breath sounds, no respiratory distress, no wheezing. Cardiovascular rate normal, regular rhythm, no murmur, no edema, distal pulses normal. Gastrointestinal soft, non-tender, no rebound, no guarding, normal bowel sounds, no distension, no pulsatile mass. Genitourinary no CVA tenderness. Musculoskeletal no midline vertebral tenderness, full range of motion, no calf swelling, no tenderness of extremities, no meningismus, good pulses, neurovascularly intact. Skin pink, warm, & dry, no rash, skin atraumatic. Neurologic normal neurological exam on exam, awake, alert and oriented x 3, AAOx3, moves all 4 extremities equally, motor intact, sensory intact, CN II-XII intact, normal cerebellar, normal vision, normal speech. Psychiatric normal mood/affect. Heme/Lymph/Immune no lymphadenopathy. Differential Diagnosis: Includes but is not limited to in a particular order migraine headache, tension headache, cluster headache, meningitis, encephalitis , intracranial bleed Medical Decision Making: Here in emergency room appears very well nontoxic has normal neurological exam is complaining of a headache that he describes a migraine headache similar to his previous headaches. Plan for this patient IV establishment IV fluid bolus, migraine cocktail, basic blood work and re-evaluate. Re-evaluation: 3:00 a.m. Patient resting comfortably no acute distress. Patient requesting discharge home. Patient was here from migraine headache. His neurological exam is unremarkable. His headache is completely resolved with IV medications and IV fluids. Given that his neuro exam is unremarkable and he has headaches with a headache history a migraine feels very similar to this Kathleen 4. CT imaging. On re- examination neurological exam is unremarkable he is feeling much better is requesting discharge home. Source: Patient - Personal History Current Tetanus Diphtheria and Acellular Pertussis (TDAP): Yes Tetanus Vaccine Date: 2015 - Medical/Surgical History Hx Asthma: No Hx Chronic Respiratory Disease: No Hx Diabetes: No Hx Cardiac Disease: No Hx Renal Disease: No Hx Cirrhosis: No Hx Alcoholism: Yes Hx HIV/AIDS: No Hx Splenectomy or Spleen Trauma: No Other PMH: PMHx: chronic pancreatitis, htn, anxiety, alcohol abuse, migraines. PSHx: denies - Social History Smoking Status: Heavy smoker Constitutional: Initial Vital Signs Temperature (C) 36.9 C 02/26/18 22:54 Heart Rate 128 H 02/26/18 22:54 Respiratory Rate 18 02/26/18 22:54 Blood Pressure 134/112 H 02/26/18 22:54 O2 Sat (%) 100 02/26/18 22:54 O2 Delivery Mode Room Air Allergies/Adverse Reactions: tramadol Allergy (Verified 02/26/18 22:53) Home Medications: Medication Instructions Recorded Acet/Caffeine/Buta Fioricet 1 each PO Q6 #20 tab 02/26/18 [Fioricet] Medical Decision Making - Data Points Laboratory Results: Laboratory Results 02/26/18 23:21 02/26/18 23:21 02/26/18 02/26/18 23:21 23:21 WBC 6.27 10^3/uL 10^3/uL (3.80-9.50) RBC 5.08 10^6/uL 10^6/uL (4.40-6.38) Hgb 15.3 g/dL g/dL (13.7-17.5) Hct 45.4 % % (40.0-51.0) MCV 89.4 fL fL (81.5-99.8) MCH 30.1 pg pg (27.9-34.1) MCHC 33.7 g/dL g/dL (32.4-36.7) RDW 13.2 % % (11.5-15.2) Plt Count 442 10^3/uL H 10^3/uL (150-400) MPV 8.8 fL fL (8.7-11.7) Neut % (Auto) 63.9 % % (39.3-74.2) Lymph % (Auto) 28.1 % % (15.0-45.0) [place] % (Auto) 7.0 % % (4.5-13.0) Eos % (Auto) 0.2 % L % (0.6-7.6) Baso % (Auto) 0.6 % % (0.3-1.7) Nucleat RBC Rel Count 0.0 % % (0.0-0.2) Absolute Neuts (auto) 4.01 10^3/uL 10^3/uL (1.70-6.50) Absolute Lymphs (auto) 1.76 10^3/uL 10^3/uL (1.00-3.00) Absolute Monos (auto) 0.44 10^3/uL 10^3/uL (0.30-0.80) Absolute Eos (auto) 0.01 10^3/uL L 10^3/uL (0.03-0.40) Absolute Basos (auto) 0.04 10^3/uL 10^3/uL (0.02-0.10) Absolute Nucleated RBC 0.00 10^3/uL 10^3/uL (0-0.01) Immature Gran % 0.2 % % (0.0-1.1) Immature Gran # 0.01 10^3/uL 10^3/uL (0.00-0.10) Sodium 137 mEq/L mEq/L (135-145) Potassium 3.6 mEq/L mEq/L (3.5-5.2) Chloride 102 mEq/L mEq/L (97-110) Carbon Dioxide 27 mEq/l mEq/l (22-31) Anion Gap 8 mEq/L mEq/L (6-14) BUN 14 mg/dL mg/dL (7-23) Creatinine 0.9 mg/dL mg/dL (0.7-1.3) Estimated GFR > 60 Glucose 118 mg/dL H mg/dL (70-100) Calcium 9.7 mg/dL mg/dL (8.5-10.4) Medications Given: Discontinued Medications Dexamethasone (Decadron Injection) 10 mg IVP EDNOW ONE Stop: 02/26/18 23:10 Last Admin: 02/26/18 23:21 Dose: 10 mg Diphenhydramine HCl (Benadryl Injection) 25 mg IVP EDNOW ONE Stop: 02/26/18 23:10 Last Admin: 02/26/18 23:22 Dose: 25 mg Sodium Chloride (Ns) 1,000 mls @ 0 mls/hr IV ONCE ONE; Wide Open PRN Reason: Protocol Stop: 02/26/18 23:10 Last Admin: 02/26/18 23:19 Dose: 1,000 mls Ketorolac Tromethamine (Toradol) 30 mg IVP EDNOW ONE Stop: 02/26/18 23:10 Last Admin: 02/26/18 23:21 Dose: 30 mg Metoclopramide HCl (Reglan Injection) 10 mg IVP EDNOW ONE Stop: 02/26/18 23:10 Last Admin: 02/26/18 23:22 Dose: 10 mg Departure - Departure Disposition: Home, Routine, Self-Care Clinical Impression: Headache Qualifiers: Headache type: tension-type Headache chronicity pattern: acute headache Intractability: not intractable Qualified Code(s): G44.209 - Tension-type headache, unspecified, not intractable Condition: Good Instructions: Butalbital/Acetaminophen/Caffeine (By mouth), Migraine Headache ( ED), Tension Headache (ED) Referrals: NONE *PRIMARY CARE P,. [Primary Care Provider] - As per Instructions Prescriptions: Acet/Caffeine/Buta Fioricet [Fioricet] 1 each PO Q6 #20 tab
[2018-02-26] MEDS ORDERED: METOCLOPRAMIDE 10 MG/2 ML VIAL IVP ONE (23:09)
[2018-02-26] MEDS ORDERED: KETOROLAC 30 MG/1 ML SDV IVP ONE (23:09)
[2018-02-26] MEDS ORDERED: DEXAMETHASONE 10 MG/ML VIAL IVP ONE (23:09)
[2018-02-26] MEDS ORDERED: NS 1,000 ML IV ONE (23:09)
[2018-02-26 23:30] LABS: PLATELET COUNT 442 10^3/uL (150-400)
[2018-02-27 03:07] VITALS: BP 139/82
== END 2018-02-27 03:13 | disposition home or self-care (01) ==
DX: G44.209 Tension-type headache, unspecified, not intractable (principal); E86.9 Volume depletion, unspecified; I10 Essential (primary) hypertension; F17.200 Nicotine dependence, unspecified, uncomplicated
CPT/HCPCS: 96374; J1100; J1200; J1885; J2765